=== PATIENT | female | born 1955 | race Caucasian/White ===

== ENCOUNTER → 2016-11-20 | Outpatient (CLI) | payer BC, OTHER ==
[2016-11-20 10:25] LABS: Basophils % (A) 1 %; CH 29.4; CHCM 33.5; Eosinophils # (A) 0.2 k/uL (0-0.7); Eosinophils % (A) 3 %; HCT 44.3 % (34.0-46.0); HDW 2.19; HGB 14.6 gm/dL (11.4-16.0); Luc # (Auto) 0.15; Luc % (Auto) 2; Lymphocytes # (A) 2.1 k/uL (1.0-4.8); Lymphocytes % (A) 30 %; MCH 29.1 pg (25.0-35.0); MCV 88.1 fL (80.0-100.0); Mean Platelet Volume 7.1; Monocytes # (A) 0.3 k/uL (0-1.0); Monocytes % (A) 5 %; Neutrophils # (A) 4.2 k/uL (1.3-7.7); Neutrophils % (A) 60 %; RBC 5.02 m/uL (3.80-5.40); RDW 12.7 % (11.5-15.5); WBC (Perox) 6.91
[2016-11-20 10:48] LABS: Glucose 87 mg/dL (74-99)
[2016-11-20 11:23] LABS: Estradiol 38 pg/mL
[2016-11-20 11:26] LABS: Hemoglobin A1C 5.6 % (4.2-6.1)
[2016-11-20 11:50] LABS: Vitamin B12 >1000 pg/mL (239-931)
[2016-11-20 15:14] LABS: DHEA Sulfate 139.7 ug/dL (26.0-430.0)
== END | disposition home or self-care (01) ==
LOC: LABWHC1 09:52
PROVIDERS: ATTEND Family Medicine
DX: E55.9 Vitamin D deficiency, unspecified (principal); E53.8 Deficiency of other specified B group vitamins; Z98.84 Bariatric surgery status; Z78.0 Asymptomatic menopausal state; E07.9 Disorder of thyroid, unspecified; R79.89 Other specified abnormal findings of blood chemistry; D64.9 Anemia, unspecified
CPT/HCPCS: 36415; 82306; 82607; 82627; 82670; 82728; 82947; 83036; 83090; 83525; 84140; 84144; 84402; 84403; 84481; 85025

== ENCOUNTER → 2016-11-21 | Outpatient (CLI) | payer BC ==
--- NOTE | 2016-11-22 11:43 | MM ---
Reason for exam: screening (asymptomatic). Last mammogram was performed 3 years ago. History: Patient is postmenopausal. Family history of premenopausal breast cancer in paternal aunt at age 43. Taking progesterone for 15 years. Physical Findings: A clinical breast exam by your physician is recommended on an annual basis and results should be correlated with mammographic findings. MG Screening Mammo w CAD Bilateral CC and MLO view(s) were taken. Prior study comparison: November 16, 2013, bilateral MG screening mammo w CAD. May 02, 2011, bilateral digital screening mammo w/CAD. December 13, 2009, bilateral digital screening mammogram. There are scattered fibroglandular densities. There is no discrete abnormality. No significant changes when compared with prior studies. ASSESSMENT: Negative, BI-RAD 1 RECOMMENDATION: Routine screening mammogram of both breasts in 1 year.
== END | disposition home or self-care (01) ==
LOC: RADMAMWWP 15:29
PROVIDERS: ATTEND Family Medicine
DX: Z12.31 Encounter for screening mammogram for malignant neoplasm of breast (principal); N95.1 Menopausal and female climacteric states; R29.890 Loss of height

== ENCOUNTER 2018-12-13 12:43 | Observation (INO) | payer BC ==
[2018-12-13] MEDS ORDERED: SODIUM CHLORIDE 0.9% 1,000 ML IV STA (13:13)
[2018-12-13] MEDS ORDERED: METOCLOPRAMIDE 5 MG/ML 2 ML VIAL IVP STA (13:14)
[2018-12-13] MEDS ORDERED: MECLIZINE 12.5 MG TAB PO STA (13:14)
--- NOTE | 2018-12-13 13:18 | ED ---
General Adult HPI - General Chief complaint: Dizziness Stated complaint: Dizzy Time Seen by Provider: 12/13/18 13:06 Source: patient, RN notes reviewed Mode of arrival: wheelchair Limitations: no limitations - History of Present Illness Initial comments: Patient is a pleasant 63-year-old female presenting to the emergency Department with complaints of dizziness. Onset of symptoms was had bad dizziness at that time. Dizziness is currently described as lightheadedness. Patient does have spinning type sensation with position changes. No history of similar symptoms previously. No recent trauma. No confusion. No speech problems. No weakness. No paresthesias. Patient states when symptoms get bad she does feel nauseated. No syncope. No headache. - Related Data Home Medications Medication Instructions Recorded Confirmed Thyroid(Bio-Identical) 90 mg PO DAILY 03/08/14 12/13/18 Cholecalciferol [Vitamin D3 (25 5,000 unit PO DAILY 12/13/18 12/13/18 Mcg = 1000 Iu)] Cyanocobalamin (Vitamin B-12) 1,000 mcg PO DAILY 12/13/18 12/13/18 [Vitamin B-12] Estradiol 8mg 8 mg PO DAILY 12/13/18 12/13/18 Losartan-Hctz 50-12.5 mg [Hyzaar 1 tab PO DAILY 12/13/18 12/13/18 50-12.5] [place]-3 Fatty Acids/Fish Oil [Fish 1 cap PO DAILY 12/13/18 12/13/18 Oil 1,000 mg Softgel] Progesterone Odt 200mg 100 mg SL HS 12/13/18 12/13/18 Progesterone Sr 200mg 200 mg PO HS 12/13/18 12/13/18 Testosterone 40mg Cream 1 applic TOPICAL HS 12/13/18 12/13/18 Allergies Allergy/AdvReac Type Severity Reaction Status Date / Time codeine AdvReac Nausea & Verified 12/13/18 13:34 Vomiting Review of Systems ROS Statement: Those systems with pertinent positive or pertinent negative responses have been documented in the HPI. ROS Other: All systems not noted in ROS Statement are negative. Constitutional: Denies: fever Eyes: Denies: eye pain ENT: Denies: ear pain Respiratory: Denies: cough Cardiovascular: Denies: chest pain Endocrine: Denies: fatigue Gastrointestinal: Denies: abdominal pain Genitourinary: Denies: dysuria Musculoskeletal: Denies: back pain Skin: Denies: rash Neurological: Reports: vertigo. Denies: headache, weakness, numbness, paresthesias, confusion Past Medical History Past Medical History: Asthma, GERD/Reflux, Hypertension, Sleep Apnea/CPAP/BIPAP, Thyroid Disorder Additional Past Medical History / Comment(s): takes several bio identical hormones @home normally History of Any Multi-Drug Resistant Organisms: None Reported Past Surgical History: Orthopedic Surgery Additional Past Surgical History / Comment(s): partial thyroidectomy, partial parathyroidectomy, 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 Past Anesthesia/Blood Transfusion Reactions: Motion Sickness, Postoperative Nausea & Vomiting (PONV) Past Psychological History: Depression Smoking Status: Never smoker - Past Family History Father Family Medical History: Deep Vein Thrombosis (DVT) General Exam Limitations: no limitations General appearance: alert, in no apparent distress Head exam: Present: atraumatic Eye exam: Present: normal appearance, PERRL, EOMI. Absent: nystagmus ENT exam: Present: normal oropharynx Neck exam: Present: normal inspection Respiratory exam: Present: normal lung sounds bilaterally Cardiovascular Exam: Present: regular rate, normal rhythm GI/Abdominal exam: Present: soft. Absent: tenderness Extremities exam: Present: normal inspection. Absent: calf tenderness Neurological exam: Present: alert, CN II-XII intact. Absent: motor sensory deficit Expanded Neurological exam: Present: protecting the airway Speech: Present: fluid speech Cranial nerves: EOM's Intact: Normal, Facial Sensation: Normal Cerebellar function: Finger to Nose: Normal Sensory exam: Upper Extremity Light Touch: Normal, Lower Extremity Light Touch: Normal Motor strength exam: RUE: 5, LUE: 5, RLE: 5, LLE: 5 Eye Response: (4) open spontaneously Motor Response: (6) obeys commands Verbal Response: (5) oriented Psychiatric exam: Present: normal affect, normal mood Skin exam: Present: normal color Course Vital Signs 12/13/18 12:45 Temperature 98 F Pulse Rate 76 Respiratory 16 Rate Blood Pressure 133/80 O2 Sat by Pulse 98 Oximetry EKG Findings - EKG Comments: EKG Findings:: Normal sinus rhythm at 74. AK 120. QRS 78. QT 378. QTC 419. Normal axis. Voltage criteria for LVH. No acute ST change. Medical Decision Making - Medical Decision Making Patient reevaluated and still has symptoms with movement despite given 3 medications. Patient and family updated on results and plan. Case was discussed with Dr. Savage, covering for Dr. Decker, who will admit. - Lab Data Result diagrams: 12/13/18 13:37 12/13/18 13:37 Lab Results 12/13/18 12/13/18 12/13/18 Range/Units 13:37 13:37 13:37 WBC 10.6 (3.8-10.6) k/uL RBC 5.09 (3.80-5.40) m/uL Hgb 14.7 (11.4-16.0) gm/dL Hct 44.6 (34.0-46.0) % MCV 87.5 (80.0-100.0) fL MCH 28.9 (25.0-35.0) pg MCHC 33.0 (31.0-37.0) g/dL RDW 13.7 (11.5-15.5) % Plt Count 262 (150-450) k/uL Neutrophils % 72 % Lymphocytes % 20 % Monocytes % 5 % Eosinophils % 2 % Basophils % 0 % Neutrophils # 7.6 (1.3-7.7) k/uL Lymphocytes # 2.1 (1.0-4.8) k/uL Monocytes # 0.6 (0-1.0) k/uL Eosinophils # 0.2 (0-0.7) k/uL Basophils # 0.0 (0-0.2) k/uL PT 10.1 (9.0-12.0) sec INR 0.9 (<1.2) APTT 23.7 (22.0-30.0) sec Sodium 142 (137-145) mmol/L Potassium 3.8 (3.5-5.1) mmol/L Chloride 106 (98-107) mmol/L Carbon Dioxide 27 (22-30) mmol/L Anion Gap 9 mmol/L BUN 18 H (7-17) mg/dL Creatinine 0.92 (0.52-1.04) mg/dL Est GFR (CKD-EPI)AfAm 77 (>60 ml/min/1.73 sqM) Est GFR (CKD-EPI)NonAf 67 (>60 ml/min/1.73 sqM) Glucose 116 H (74-99) mg/dL Calcium 9.4 (8.4-10.2) mg/dL Total Bilirubin 0.4 (0.2-1.3) mg/dL AST 18 (14-36) U/L ALT 14 (9-52) U/L Alkaline Phosphatase 72 (38-126) U/L Total Protein 6.8 (6.3-8.2) g/dL Albumin 4.0 (3.5-5.0) g/dL - Radiology Data Radiology results: report reviewed (Computed tomography scan the brain reveals no acute intercranial abnormality. Left maxillary sinusitis.) Disposition Clinical Impression: Vertigo Disposition: ADMITTED IP TO THIS HOSP Is patient prescribed a controlled substance at d/c from ED?: No Referrals: Obdulio Decker III, MD [Primary Care Provider] - 1-2 days Decision Time: 15:53
[2018-12-13 13:56] LABS: Basophils % (A) 0 %; Eosinophils # (A) 0.2 k/uL (0-0.7); Eosinophils % (A) 2 %; HCT 44.6 % (34.0-46.0); HGB 14.7 gm/dL (11.4-16.0); Lymphocytes # (A) 2.1 k/uL (1.0-4.8); Lymphocytes % (A) 20 %; MCH 28.9 pg (25.0-35.0); MCV 87.5 fL (80.0-100.0); Mean Platelet Volume 7.2; Monocytes # (A) 0.6 k/uL (0-1.0); Monocytes % (A) 5 %; Neutrophils # (A) 7.6 k/uL (1.3-7.7); Neutrophils % (A) 72 %; Platelet Count 262 k/uL (150-450); RBC 5.09 m/uL (3.80-5.40); RDW 13.7 % (11.5-15.5); WBC 10.6 k/uL (3.8-10.6)
--- NOTE | 2018-12-13 14:09 | CT ---
EXAMINATION TYPE: CT brain wo con DATE OF EXAM: 12/13/2018 COMPARISON: 08/11/2010 HISTORY: dizziness CT DLP: 1084.4 mGycm Automated exposure control for dose reduction was used. FINDINGS: Ventricles and sulci appear normal. There is no mass effect nor midline shift. There is no sign of in tracranial hemorrhage. Calvarium is intact. There is opacification left maxillary sinus. IMPRESSION: NEGATIVE CT SCAN OF THE BRAIN. THERE IS LEFT MAXILLARY SINUSITIS THAT IS NEW COMPARED TO OLD EXAM.
[2018-12-13 14:13] LABS: Calcium 9.4 mg/dL (8.4-10.2); Potassium 3.8 mmol/L (3.5-5.1); Total Bilirubin 0.4 mg/dL (0.2-1.3); Total Protein 6.8 g/dL (6.3-8.2)
[2018-12-13 14:19] LABS: INR 0.9 (<1.2); Partial Thromboplastin Time 23.7 sec (22.0-30.0); Prothrombin Time 10.1 sec (9.0-12.0)
[2018-12-13] MEDS: DIAZEPAM 5 MG/ML 2 ML INJ IVP STA ×2 (14:20→14:21)
[2018-12-13] MEDS ORDERED: NALOXONE 0.4 MG/ML 1 ML VIAL IV PRN (15:53)
[2018-12-13] MEDS ORDERED: METOCLOPRAMIDE 5 MG/ML 2 ML VIAL IVP PRN (15:54)
[2018-12-13] MEDS ORDERED: MECLIZINE 25 MG TAB PO PRN (15:54)
[2018-12-13] MEDS ORDERED: SCOPOLAMINE 1.5MG/72HR PATCH TRANSDERM STA (15:55)
[2018-12-13] MEDS ORDERED: SODIUM CHLORIDE 0.9% 1,000 ML IV SCH (16:00)
[2018-12-14 06:55] LABS: Glucose,Whole Blood 91 mg/dL (75-99)
--- NOTE | 2018-12-14 07:22 | HP ---
HISTORY AND PHYSICAL DATE OF SERVICE: 12/13/2018 CHIEF COMPLAINT: Dizziness. HISTORY OF PRESENT ILLNESS: This 63-year-old woman with a past medical history of asthma, GERD, hypertension, sleep apnea, hypothyroidism, history of motion sickness, history of gastric sleeve surgery, history of depression, being followed by Dr. Decker in the outpatient setting was complaining of dizziness. The patient apparently reports like a spinning sensation and as well as some lightheadedness. Patient came to [facility] and admitted for further evaluation and treatment. There is no history of fever or rigors. No history of headache, loss of consciousness, or seizures. PAST MEDICAL HISTORY: Asthma, GERD, hypertension, sleep apnea, history of hypothyroidism, history of depression. MEDICATIONS: The home medications are reviewed and include: 1. Thyroid Bio-Identical 90 mg p.o. daily. 2. Testosterone cream 1 application topically q.h.s. 3. Progesterone 200 mg p.o. q.h.s. 4. [place]-3 fatty acid. 5. Losartan hydrochlorothiazide. 6. Estradiol. 7. Vitamin B12. 8. Vitamin D3. ALLERGIES: Allergies are CODEINE. FAMILY HISTORY: History of DVT in the family. SOCIAL HISTORY: No history of smoking. No history of alcohol intake. REVIEW OF SYSTEMS: ENT: No diminished hearing or diminished vision. CARDIOVASCULAR SYSTEM: No angina. RESPIRATORY SYSTEM: No cough or hemoptysis. GI: No nausea. : No dysuria. NERVOUS SYSTEM: As mentioned earlier. ALLERGY/IMMUNOLOGY: Asthma. MUSCULOSKELETAL: As mentioned earlier. HEMATOLOGY/ONCOLOGY: No history of anemia. ENDOCRINE: As mentioned earlier. CONSTITUTIONAL: As mentioned earlier. DERMATOLOGY: Negative. RHEUMATOLOGY: Negative. PSYCHIATRY: As mentioned earlier. PHYSICAL EXAMINATION: The patient is alert and oriented x3. Pulse is 76. Blood pressure 136/83. No orthostatic changes. Respiration 18. Temperature 98.5. Pulse ox 97% on room air. HEENT: Conjunctivae normal. Oral mucosa moist. NECK: No jugular venous distention. No carotid bruit. No lymph node enlargement. CARDIOVASCULAR: S1, S2 muffled. RESPIRATORY: Breath sounds diminished at the bases. No rhonchi, no crackles. ABDOMEN: Soft, nontender. No mass palpable. LEGS: No edema, no swelling. NERVOUS SYSTEM: Higher function as mentioned earlier. Cranial nerves second to twelve grossly intact. No nystagmus noted. No_dysfunction. SKIN: No ulcer, rash or bleeding. JOINTS: No active deforming arthropathy. LYMPHATICS: No lymphadenopathy of the neck, axillae or groin. LABS: CBC within normal limits. BUN is 18. Glucose 116. ASSESSMENT: 1. Dizziness for evaluation possible rule out benign positional vertigo. 2. Asthma. 3. Gastroesophageal reflux disease. 4. Hypertension. 5. Sleep apnea. 6. Hypothyroidism. 7. History of partial thyroidectomy. 8. History of partial parathyroidectomy. 9. History of gastric sleeve surgery. 10.History of depression. RECOMMENDATIONS AND DISCUSSION: This 63-year-old woman presented with multiple complex medical issues, at this time I recommend continue with current medications, continue with symptomatic treatment and neuro checks. Neurology evaluation. The initial evaluations are negative at this time but however recommend to continue the current medication. Resume the home medications. Copy of dictation forwarded to Dr. Decker who is the primary physician. MMODL / CAMERONN: [id number] / MTDD
[2018-12-14 07:32] VITALS: BP 143/89; PULSE 67; RESP 17; TEMP 97.8
[2018-12-14] MEDS ORDERED: LOSARTAN-HCTZ 50-12.5 MG 1 EACH TAB PO SCH (09:00)
[2018-12-14 11:22] LABS: Progesterone 2.7 ng/mL
--- NOTE | 2018-12-14 11:24 | P.CNNES ---
History of Present Illness Consult date: 12/14/18 Requesting physician: Ciarra Rodriguez Reason for Consult: Dizziness Chief complaint: Dizziness History of Present Illness: This is a 63 RH female with abrupt onset of episodic room-spinning sensation precipitated by turning head to the left and body positional changes since a couple days ago. When the vertigo is intense, she gets nauseated. Denies any antecedent head/neck trauma, URI sx or vaccination. No hearing changes or tinnitus. No other posterior circulation symptoms such as drop attacks, diplopia, facial numbness or droop, dysarthria, dysphagia, alternating or hemianesthesia or paresis, myoclonus, hiccups, urinary incontinence or ataxia. Patient observes that she had slept 6 hours and woke up in the morning and felt fine, but as she started moving around, the vertigo returned. Never had had vertigo before. Has been getting scopolamine patch and meclizine, which somewhat help. Review of Systems I have performed a 14-point organ ROS with patient that are negative except as per HPI. Past Medical History Past Medical History: Asthma, GERD/Reflux, Hypertension, Sleep Apnea/CPAP/BIPAP, Thyroid Disorder Additional Past Medical History / Comment(s): takes several bio identical hormones @home normally History of Any Multi-Drug Resistant Organisms: None Reported Past Surgical History: Orthopedic Surgery Additional Past Surgical History / Comment(s): partial thyroidectomy, partial parathyroidectomy, 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 Past Anesthesia/Blood Transfusion Reactions: Motion Sickness, Postoperative Nausea & Vomiting (PONV) Past Psychological History: Depression Smoking Status: Never smoker Past Alcohol Use History: Rare Past Drug Use History: None Reported - Past Family History Father Family Medical History: Deep Vein Thrombosis (DVT) Medications and Allergies Home Medications Medication Instructions Recorded Confirmed Type Thyroid(Bio-Identical) 90 mg PO DAILY 03/08/14 12/13/18 History Cholecalciferol [Vitamin D3 (25 5,000 unit PO DAILY 12/13/18 12/13/18 History Mcg = 1000 Iu)] Cyanocobalamin (Vitamin B-12) 1,000 mcg PO DAILY 12/13/18 12/13/18 History [Vitamin B-12] Estradiol 8mg 8 mg PO DAILY 12/13/18 12/13/18 History Losartan-Hctz 50-12.5 mg [Hyzaar 1 tab PO DAILY 12/13/18 12/13/18 History 50-12.5] [place]-3 Fatty Acids/Fish Oil [Fish 1 cap PO DAILY 12/13/18 12/13/18 History Oil 1,000 mg Softgel] Progesterone Odt 200mg 100 mg SL HS 12/13/18 12/13/18 History Progesterone Sr 200mg 200 mg PO HS 12/13/18 12/13/18 History Testosterone 40mg Cream 1 applic TOPICAL HS 12/13/18 12/13/18 History Allergies Allergy/AdvReac Type Severity Reaction Status Date / Time codeine AdvReac Nausea & Verified 12/13/18 13:34 Vomiting Physical Examination - Vital Signs Vital Signs: Vital Signs Temp Pulse Pulse Pulse Pulse Pulse Resp 12/14/18 07:29 97.8 F 67 17 12/14/18 03:43 18 12/13/18 23:35 18 12/13/18 23:28 98.5 F 76 80 78 18 12/13/18 20:00 16 12/13/18 18:16 16 12/13/18 16:30 97.4 F L 68 16 12/13/18 16:07 79 18 12/13/18 12:45 98 F 76 16 BP BP BP BP BP Pulse Ox 12/14/18 07:29 143/89 96 12/14/18 03:43 12/13/18 23:35 12/13/18 23:28 136/83 139/85 135/71 97 12/13/18 20:00 12/13/18 18:16 12/13/18 16:30 142/84 98 12/13/18 16:07 160/76 95 12/13/18 12:45 133/80 98 Intake and Output 12/13/18 12/14/18 12/14/18 22:59 06:59 14:59 Other: Voiding Method Toilet Toilet Toilet # Voids 1 1 Gen NAD Pleasant and cooperative HEENT NCAT Sclera without icterus O/P clear Neck Supple No carotid bruit Cor RRR no m/r/g Lungs CTAB Abd Soft NTND +BS Ext Warm to touch No edema Neuro MS A+Ox4 Normal fluency Able to follow all commands CN PERRL VFF no APD EOMI no nystagmus or REMBERTO No facial asymmetry [place]'s symmetric Hearing intact to normal voice bilaterally Speech not dysarthric Equal elevation of palate Tongue midline Sym shrug and SCM bilaterally Motor Normal bulk/tone No pronator drift or tremors Strength 5/5 sym throughout Sens Intact to LT x4 No neglect Coord No dysmetria on FTN/HTS bilaterally DTRs 2+/4 sym throughout Toes downgoing bilaterally No clonus at achilles Gait Deferred NIHSS 0 Results - Laboratory Findings CBC and BMP: 12/13/18 13:37 12/13/18 13:37 Abnormal Lab Findings: Abnormal Labs 12/13/18 13:37 BUN 18 H Glucose 116 H - Diagnostic Findings Additional findings: CT Head wo cont 12/13/18. Nil acute. I have reviewed neuroimages myself. Assessment and Plan Assessment: New-onset vertigo, sounds like BPPV. r/o central causes. Plan: -MRI Brain has been done but PACS is down so will need to wait until it gets fixed -PT for vestibular rehabilitation -Meclizine and scopolamine. If vertigo is refractory, can try benzodiazepine but explained to patient that the stronger the anti-vertigo med is, the more sedating it becomes -Fall precautions -d/w patient and family at bedside. All questions answered. Thank you for this consultation. Please call with ?. Time with Patient: Greater than 30 (Time spent in direct patient care, greater than 50% of which was spent in [id number] counseling and coordination of care: 70 minutes.)
--- NOTE | 2018-12-14 13:22 | MR ---
MR brain without contrast HISTORY: Vertigo Multiplanar multisequence imaging through the brain Correlation CT brain 12/13/2018 There is no restricted diffusion. There is no hemorrhage or hydrocephalus. There are normal vascular flow voids. The orbits show symmetric appearance. Scattered periventricular, pericallosal, subcortica l and juxtacortical hyperintensities are present within the white matter on inversion recovery T2-caterina ghted sequences, there are approximately 40-50 lesions present. Left maxillary sinus is opacified, th ere is abnormal signal present. There are normal vascular flow voids. Cerebellopontine angles, corpus callosum, pituitary, cervical medullary junction are unremarkable. IMPRESSION: Nonspecific white matter demyelination, consider hypertension, migraine headaches, chroni c small vessel ischemic changes or vasculitis, multiple sclerosis in the appropriate clinical setting , Lyme disease. No restricted diffusion to suggest subacute ischemia.
--- NOTE | 2018-12-14 16:46 | DS ---
DISCHARGE SUMMARY DATE OF SERVICE: 12/14/2018. FINAL DIAGNOSES: 1. Dizziness possibly benign positional vertigo. 2. Nonspecific white matter changes in the MRI. 3. History of asthma. 4. Gastroesophageal reflux disease. 5. History of sleep apnea. 6. History of hypothyroidism. 7. History of partial thyroidectomy. 8. History of parathyroidectomy. 9. History of gastric sleeve surgery. 10.History of depression. DISCHARGE DISPOSITION: Patient will be discharged in stable condition with guarded prognosis. Neurology cleared the patient for discharge. HISTORY OF PRESENT ILLNESS: This is a 63-year-old woman with a past medical history of multiple medical problems admitted with dizziness to [facility]. The patient was closely monitored. MRI showed only nonspecific white matter lesions. Neurology saw the patient and recommended outpatient followup. Otherwise, patient is symptomatically treated. Patient improved significantly. There were no orthostatic changes for the blood pressure. On exam, vitals are stable. Cardiovascular is S1, S2 normal. Abdomen soft. Nervous system: No focal deficits. Other labs were normal. The patient is being discharged in stable condition with guarded prognosis with the following advice and medications. DISCHARGE ADVICE AND MEDICATIONS: 1. Diet is cardiac diet. 2. Activity limited until followup. 3. Follow up with Dr. Decker as advised. 4. Follow up with the neurologist in the next one to two weeks. DISCHARGE MEDICATIONS: 1. Estradiol 8 mg p.o. daily. 2. Fish oil 1 p.o. daily. 3. Losartan hydrochlorothiazide 50/12.5 mg p.o. daily. 4. Progesterone testosterone thyroid as before. 5. Vitamin B12 1 mg p.o. daily. 6. Vitamin D3 5000 daily. 7. Antivert 12.5 mg t.i.d. p.r.n. Once again, the patient will be discharged in stable condition with guarded prognosis. MMODL / IJN: [id number] /
== END 2018-12-14 15:22 | disposition home or self-care (01) ==
LOC: EC 12:43 → 1SOBS 15:53
PROVIDERS: ADMIT Internal Medicine; ATTEND Internal Medicine
DX: R42 Dizziness and giddiness (principal); K21.9 Gastro-esophageal reflux disease without esophagitis; J45.909 Unspecified asthma, uncomplicated; G37.9 Demyelinating disease of central nervous system, unspecified; J32.0 Chronic maxillary sinusitis; I10 Essential (primary) hypertension; G47.30 Sleep apnea, unspecified; E89.0 Postprocedural hypothyroidism; F32.9 Major depressive disorder, single episode, unspecified; Z99.89 Dependence on other enabling machines and devices; Z79.818 Long term (current) use of other agents affecting estrogen receptors and estrogen levels; Z79.890 Hormone replacement therapy; Z79.899 Other long term (current) drug therapy; Z88.5 Allergy status to narcotic agent; Z98.84 Bariatric surgery status; Z90.89 Acquired absence of other organs; Z87.898 Personal history of other specified conditions; Z82.49 Family history of ischemic heart disease and other diseases of the circulatory system
CPT/HCPCS: 96361; 96374; 96375; 99285; 36415; 93005; 80053; 82672; 82670; 85025; 85610; 85730; 84144; 70450; 70551; G0378 ×2; J2765; J3360

== ENCOUNTER → 2019-01-07 | Outpatient (CLI) | payer BC ==
--- NOTE | 2019-01-08 09:17 | MM ---
Reason for exam: screening (asymptomatic). Last mammogram was performed 2 years and 2 months ago. History: Patient is postmenopausal. Family history of premenopausal breast cancer in paternal aunt at age 43. Taking progesterone for 15 years. Physical Findings: A clinical breast exam by your physician is recommended on an annual basis and results should be correlated with mammographic findings. MG Screening Mammo w CAD Bilateral CC and MLO view(s) were taken. Prior study comparison: November 21, 2016, bilateral MG screening mammo w CAD. November 16, 2013, bilateral MG screening mammo w CAD. There are scattered fibroglandular densities. No suspicious abnormality. No significant changes when compared with prior studies. ASSESSMENT: Negative, BI-RAD 1 RECOMMENDATION: Routine screening mammogram of both breasts in 1 year.
== END | disposition home or self-care (01) ==
LOC: RADMAMWWP 09:46
PROVIDERS: ATTEND Family Medicine
DX: Z12.31 Encounter for screening mammogram for malignant neoplasm of breast (principal)
CPT/HCPCS: 77067

== ENCOUNTER 2021-03-10 13:14 | Emergency (ER) | payer OTHER, BC ==
[2021-03-10 13:37] VITALS: TEMP 99
[2021-03-10 14:42] VITALS: RESP 18
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
--- NOTE | 2021-03-10 16:24 | XR ---
EXAMINATION TYPE: XR lumbar spine 2 or 3V DATE OF EXAM: 03/10/2021 COMPARISON: NONE HISTORY: Back pain TECHNIQUE: 3 views FINDINGS: Lumbar vertebra have normal alignment. Posterior elements are intact. There is vacuum disc at L4-5 and L5-S1. Sacroiliac joints are intact. There is some linear density over the left sacroilia c joint. This is also present on the old abdomen x-ray of 07/07/2011. This is some retained foreign lokesh dy in the abdomen. IMPRESSION: There is some degenerative disc changes in the lower lumbar spine. No fracture.. Retained foreign body in the left side of the abdomen.
[2021-03-10 17:13] VITALS: BP 126/78; PULSE 80
== END 2021-03-10 17:13 | disposition home or self-care (01) ==
LOC: EC 13:14
DX: S16.1XXA Strain of muscle, fascia and tendon at neck level, initial encounter (principal); S39.012A Strain of muscle, fascia and tendon of lower back, initial encounter; J45.909 Unspecified asthma, uncomplicated; I10 Essential (primary) hypertension; E07.9 Disorder of thyroid, unspecified; Z88.5 Allergy status to narcotic agent; Z79.890 Hormone replacement therapy; Z79.899 Other long term (current) drug therapy; V49.40XA Driver injured in collision with unspecified motor vehicles in traffic accident, initial encounter; Y92.410 Unspecified street and highway as the place of occurrence of the external cause
CPT/HCPCS: 72100; 72125; 99284

== ENCOUNTER 2021-08-02 13:34 | Emergency (ER) | payer BC ==
[2021-08-02 13:44] VITALS: BP 149/72; PULSE 80; RESP 20; TEMP 98.3
--- NOTE | 2021-08-02 14:02 | ED ---
General Adult HPI - General Chief complaint: Extremity Injury, Lower Stated complaint: Broken foot Time Seen by Provider: 08/02/21 13:52 Source: patient, RN notes reviewed, old records reviewed Mode of arrival: ambulatory Limitations: no limitations - History of Present Illness Initial comments: 65 yo female presenting for evaluation of left foot pain. Patient states she was climbing stairs and felt a pop in the underside of her left foot. She has had pain since the injury. No significant swelling. No bruising. She is able to walk but his had pain with ambulation. - Related Data Home Medications Medication Instructions Recorded Confirmed Testosterone 40mg Cream 1 applic TOPICAL Q3D 12/13/18 08/02/21 Estradiol Cream 8gm 8 gm TOPICAL DAILY 08/02/21 08/02/21 Fluconazole [Diflucan] 150 mg PO SA 08/02/21 08/02/21 Ketoconazole [Ketoconazole 2%] 1 applic TOPICAL BID 08/02/21 08/02/21 [address] [employer] Thyriod 1.5gm 1.5 gm PO DAILY 08/02/21 08/02/21 Olmesartan/Hydrochlorothiazide 1 tab PO DAILY 08/02/21 08/02/21 [Olmesartan-Hctz 40-12.5 mg Tab] Omeprazole 20 mg PO DAILY 08/02/21 08/02/21 Progesterone 400mg 400 mg PO BID 08/02/21 08/02/21 Allergies Allergy/AdvReac Type Severity Reaction Status Date / Time codeine AdvReac Nausea & Verified 08/02/21 14:16 Vomiting Review of Systems ROS Statement: Those systems with pertinent positive or pertinent negative responses have been documented in the HPI. ROS Other: All systems not noted in ROS Statement are negative. Past Medical History Past Medical History: Asthma, GERD/Reflux, Hypertension, Sleep Apnea/CPAP/BIPAP, Thyroid Disorder Additional Past Medical History / Comment(s): takes several bio identical hormones @home normally History of Any Multi-Drug Resistant Organisms: None Reported Past Surgical History: Orthopedic Surgery Additional Past Surgical History / Comment(s): partial thyroidectomy, partial parathyroidectomy, 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 Past Anesthesia/Blood Transfusion Reactions: Motion Sickness, Postoperative Nausea & Vomiting (PONV) Past Psychological History: Depression Smoking Status: Never smoker Past Alcohol Use History: Rare Past Drug Use History: None Reported - Past Family History Father Family Medical History: Deep Vein Thrombosis (DVT) General Exam Limitations: no limitations General appearance: alert, in no apparent distress Head exam: Present: atraumatic, normocephalic Eye exam: Present: normal appearance, PERRL ENT exam: Present: normal exam Neck exam: Present: normal inspection. Absent: tenderness, meningismus Respiratory exam: Present: normal lung sounds bilaterally. Absent: respiratory distress, wheezes Cardiovascular Exam: Present: regular rate, normal rhythm GI/Abdominal exam: Present: soft. Absent: distended, tenderness, guarding Extremities exam: Present: normal inspection, tenderness (Just distal to the calcaneus, tenderness at the mid foot. There is no bruising. Normal cap refill, normal sensation, normal range of motion.) Neurological exam: Present: alert, oriented X3 Psychiatric exam: Present: normal affect, normal mood Skin exam: Present: warm, dry, intact. Absent: cyanosis, diaphoretic Course Vital Signs 08/02/21 13:41 Temperature 98.3 F Pulse Rate 80 Respiratory 20 Rate Blood Pressure 149/72 O2 Sat by Pulse 98 Oximetry Medical Decision Making - Medical Decision Making X-ray of the foot performed, negative for acute fracture dislocation. Patient may have sustained a ligamentous injury. She will be given orthopedic follow- up. She will take Tylenol Motrin for pain. Disposition Clinical Impression: Sprain of foot, left Disposition: HOME SELF-CARE Condition: Good Instructions (If sedation given, give patient instructions): Foot Sprain (ED) Is patient prescribed a controlled substance at d/c from ED?: No Referrals: Tete Curtis MD [Primary Care Provider] - 1-2 days Prasanth Frost MD [Medical Doctor] - 1-2 days Time of Disposition: 15:05
--- NOTE | 2021-08-02 14:59 | XR ---
EXAMINATION TYPE: XR foot complete LT DATE OF EXAM: 08/02/2021 COMPARISON: None available INDICATION: Fall TECHNIQUE: Standard 3 views of the left foot FINDINGS: Degenerative changes of the first metatarsophalangeal joint with osteophytosis and subchondral sclero tic changes. Questionable 4 mm sclerotic focus is seen in the second distal phalanx, likely represent ing a bone island. No bone destruction. Inferior calcaneal spur. No definite acute fracture line iden tified. IMPRESSION: No definite acute fracture line identified. Incidental findings as described above.
== END 2021-08-02 15:04 | disposition home or self-care (01) ==
LOC: EC 13:34
DX: S93.602A Unspecified sprain of left foot, initial encounter (principal); J45.909 Unspecified asthma, uncomplicated; I10 Essential (primary) hypertension; K21.9 Gastro-esophageal reflux disease without esophagitis; E07.9 Disorder of thyroid, unspecified; Z88.5 Allergy status to narcotic agent; Z79.899 Other long term (current) drug therapy; Z79.890 Hormone replacement therapy; X50.9XXA Other and unspecified overexertion or strenuous movements or postures, initial encounter
CPT/HCPCS: 99283

== ENCOUNTER → 2023-07-15 | Outpatient (CLI) | payer BC ==
--- NOTE | 2023-07-16 09:07 | MM ---
Reason for Exam: Screening (asymptomatic). Last mammogram was performed 1 year(s) and 10 month(s) ago. Patient History: Menarche at age 12. First Full-Term at age 19. Left ovary removed at age 45. Postmenopausal. Currently using Progesterone, for 15 years. Paternal aunt had breast cancer, age 43. Sister had breast cancer, age 74. Risk Values: Chyna 5 year model risk: 3.1%. NCI Lifetime model risk: 10.5%. Prior Study Comparison: 11/16/2013 Bilateral Screening Mammogram, [facility]. 11/21/2016 Bilateral Screening Mammogram, [facility]. 01/07/2019 Bilateral Screening Mammogram, [facility]. 08/24/2021 Bilateral Screening Mammogram, [facility]. Tissue Density: There are scattered fibroglandular densities. Findings: Analyzed By CAD. There is no suspicious group of microcalcifications or new suspicious mass in either breast. Benign-appearing calcifications. Overall Assessment: Benign, BI-RAD 2 Management: Screening Mammogram of both breasts in 1 year. . Patient should continue monthly self-breast exams. A clinical breast exam by your physician is recommended on an annual basis. This exam should not preclude additional follow-up of suspicious palpable abnormalities. Note on Chyna scores and lifetime risk: 1. A Chyna score greater than 3% is considered moderate risk. If this is the case, consider specialist referral to assess eligibility for a risk reducing agent. 2. If overall lifetime risk for the development of breast cancer is 20% or higher, the patient may qualify for future screening with alternating mammogram and breast MRI. Electronically signed and approved by: Chepe Ortiz M.D. Radiologis
== END | disposition home or self-care (01) ==
LOC: RADMAMWWP 11:48
PROVIDERS: ATTEND Family Medicine
DX: Z12.31 Encounter for screening mammogram for malignant neoplasm of breast (principal); Z80.3 Family history of malignant neoplasm of breast; Z78.0 Asymptomatic menopausal state
CPT/HCPCS: 77063; 77067

== ENCOUNTER → 2023-07-15 | Outpatient (CLI) | payer BC ==
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
== END | disposition home or self-care (01) ==
LOC: RADCTMAIN 12:24
PROVIDERS: ATTEND Family Medicine
DX: N20.0 Calculus of kidney (principal); M62.830 Muscle spasm of back; N28.89 Other specified disorders of kidney and ureter; Z87.442 Personal history of urinary calculi
CPT/HCPCS: 74176

== ENCOUNTER 2023-09-25 16:22 | Emergency (ER) | payer BC ==
--- NOTE | 2023-09-25 17:03 | ED ---
Abdominal Pain HPI - General Chief Complaint: Abdominal Pain Stated Complaint: R side pain/ELDER Time Seen by Provider: 09/25/23 16:49 Source: patient, family Mode of arrival: ambulatory Limitations: no limitations - History of Present Illness Initial Comments: This is a 67-year-old female presenting for severe abdominal pain. Patient woke up with debilitating right-sided abdominal pain that went away and then came back again this afternoon that was significantly on her right side radiating to her abdomen and lower abdomen and in groin. Patient did admit to symptoms of sweating and felt feverish. Positive nausea without any vomiting. MD Complaint: abdominal pain, flank pain -: hour(s) Location: RLQ, suprapubic, R flank Radiation: suprapubic, R flank, back Migration to: suprapubic Severity: severe Severity scale (1-10): 8 Quality: stabbing Consistency: constant Improves With: nothing Worsens With: nothing Associated Symptoms: nausea, vomiting Treatments Prior to Arrival: other (0) - Related Data Home Medications Medication Instructions Recorded Confirmed Omeprazole 20 mg PO DAILY 08/02/21 09/28/23 Acetaminophen [Tylenol Arthritis] 650 - 1,300 mg PO TID PRN 09/25/23 09/28/23 Dhea 20mg 1 cap PO DAILY 09/25/23 09/28/23 Estradiol 8mg/Gm Cream 0.25 gm TOPICAL BID 09/25/23 09/28/23 Testosterone 40mg/Gm Cream 0.25 gm TOPICAL HS 09/25/23 09/28/23 Thyroid,Pork [Physician'S Assistant Thyroid] 90 mg PO DAILY 09/25/23 09/28/23 Albuterol Sulfate [Proair 2 puff INHALATION Q6H PRN 09/28/23 09/28/23 Respiclick] Progesterone, Micronized 200 mg PO HS 09/28/23 09/28/23 [Progesterone] Previous Rx's Medication Instructions Recorded Ciprofloxacin HCl [Cipro] 500 mg PO Q12HR 10 Days #20 tab 09/30/23 Furosemide [Lasix] 20 mg PO DAILY #30 tab 09/30/23 Allergies Allergy/AdvReac Type Severity Reaction Status Date / Time codeine AdvReac Nausea & Verified 09/28/23 10:56 Vomiting Review of Systems ROS Statement: Those systems with pertinent positive or pertinent negative responses have been documented in the HPI. ROS Other: All systems not noted in ROS Statement are negative. 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 Past Anesthesia/Blood Transfusion Reactions: Motion Sickness, Postoperative Nausea & Vomiting (PONV) Past Psychological History: Depression Smoking Status: Never smoker Past Alcohol Use History: Rare Past Drug Use History: None Reported - Past Family History Father Family Medical History: Deep Vein Thrombosis (DVT) General Exam Limitations: no limitations General appearance: alert, in no apparent distress, anxious Head exam: Present: atraumatic, normocephalic, normal inspection Eye exam: Present: normal appearance, PERRL, EOMI. Absent: scleral icterus, conjunctival injection, periorbital swelling ENT exam: Present: normal exam, mucous membranes moist Neck exam: Present: normal inspection. Absent: tenderness, meningismus, lymphadenopathy Respiratory exam: Present: normal lung sounds bilaterally. Absent: respiratory distress, wheezes, rales, rhonchi, stridor Cardiovascular Exam: Present: regular rate, normal rhythm, normal heart sounds. Absent: systolic murmur, diastolic murmur, rubs, gallop, clicks GI/Abdominal exam: Present: soft, normal bowel sounds. Absent: distended, tenderness, guarding, rebound, rigid Extremities exam: Present: normal inspection, full ROM, normal capillary refill. Absent: tenderness, pedal edema, joint swelling, calf tenderness Back exam: Present: normal inspection Neurological exam: Present: alert, oriented X3, CN II-XII intact Psychiatric exam: Present: normal affect, normal mood Skin exam: Present: warm, dry, intact, normal color. Absent: rash Course Vital Signs 09/25/23 09/25/23 09/25/23 16:35 16:38 18:16 Temperature 98.4 F 98.5 F 98.7 F Pulse Rate 83 109 H Respiratory 20 18 Rate Blood Pressure 118/63 149/64 O2 Sat by Pulse 98 96 Oximetry 09/25/23 20:15 Temperature Pulse Rate 97 Respiratory 16 Rate Blood Pressure 131/66 O2 Sat by Pulse 98 Oximetry - Reevaluation(s) Reevaluation #1: 09/25/23 19:46 medical record is reviewed Reevaluation #2: 09/25/23 19:47 patient pain is controlled Reevaluation #3: 09/25/23 19:47 patient is informed of results and questions answered Reevaluation #4: Was pt. sent in by a medical professional or institution (, GERSON, PUBLIC HEALTH ADVISOR, urgent care, hospital, or [facility]...) When possible be specific @ -no Did you speak to anyone other than the patient for history (EMS, parent, family, police, friend...)? What history was obtained from this source @ -no Did you review nursing and triage notes (agree or disagree)? Why? @ -agree Are old charts reviewed (outside hosp., previous admission, EMS record, old EKG, old radiological studies, urgent care reports/EKG's, [facility] records)? Report findings @ -yes Differential Diagnosis (chest pain, altered mental status, abdominal pain women, abdominal pain men, vaginal bleeding, weakness, fever, dyspnea, syncope, headache, dizziness, GI bleed, back pain, seizure, CVA, palpatations, mental health, musculoskeletal)? @ -prior EKG interpreted by me (3pts min.). @ -no X-rays interpreted by me (1pt min.). @ -no CT interpreted by me (1pt min.). @ -yes negative for acute disease U/S interpreted by me (1pt. min.). @ -no What testing was considered but not performed or refused? (CT, X-rays, U/S, labs)? Why? @ -none What meds were considered but not given or refused? Why? @ -none Did you discuss the management of the patient with other professionals (professionals i.e. , GERSON, PUBLIC HEALTH ADVISOR, lab, RT, psych nurse, social studies department chair, vendor management consultant, teacher, vessel traffic officer, porter sample case)? Give summary @ -no Was smoking cessation discussed for >3mins.? @ -no Was critical care preformed (if so, how long)? @ -no Were there social determinants of health that impacted care today? How? (Homelessness, low income, unemployed, alcoholism, drug addiction, transportation, low edu. Level, literacy, decrease access to med. care, fci, rehab)? @ -none Was there de-escalation of care discussed even if they declined (Discuss DNR or withdrawal of care, Hospice)? DNR status @ -no What co-morbidities impacted this encounter? (DM, HTN, Smoking, COPD, CAD, Cancer, CVA, ARF, Chemo, Hep., AIDS, mental health diagnosis, sleep apnea, morbid obesity)? @ -none Was patient admitted / discharged? Hospital course, mention meds given and route, prescriptions, significant lab abnormalities, going to OR and other pertinent info. @ - 67 female to the ER for evaluation today. Patient presents today for evaluation of severe abdominal pain with positive ureterolithiasis right-sided kidney stone at the UVJ 4 mm. Patient will expect to pass his kidney stone in the next 24 hours, given pain control and can be discharged home Discharge Undiagnosed new problem with uncertain prognosis? @ -no Drug Therapy requiring intensive monitoring for toxicity (Heparin, Nitro, Insulin, Cardizem)? @ -no Were any procedures done? @ -no Diagnosis/symptom? @ -Kidney stone with ureteral lithiasis Acute, or Chronic, or Acute on Chronic? @ -Acute Uncomplicated (without systemic symptoms) or Complicated (systemic symptoms)? @ -Complicated Side effects of treatment? @ -no Exacerbation, Progression, or Severe Exacerbation? @ -exacerbation Poses a threat to life or bodily function? How? (Chest pain, USA, DE, pneumonia, PE, COPD, DKA, ARF, appy, cholecystitis, CVA, Diverticulitis, Homicidal, Suicidal, threat to staff... and all critical care pts) @ -yes with extremes of age Reevaluation #5: Differential Abdominal Pain Women: Appendicitis, Cholecystitis, diverticulosis, ischemic bowel, pancreatitis, hepatitis, UTI, gastroenteritis, AAA, incarcerated hernia, bowel obstruction, constipation, inflammatory bowel, hepatitis, peptic ulcer disease, splenic infarction, perforated viscus, vulvitis, ovarian torsion, PID, kidney stone, placenta abruption, this is not meant to be an all-inclusive list Medical Decision Making - Medical Decision Making 67 female to the ER for evaluation today. Patient presents today for evaluation of severe abdominal pain with positive ureterolithiasis right-sided kidney stone at the UVJ 4 mm. Patient will expect to pass his kidney stone in the next 24 hours, given pain control and can be discharged home - Lab Data Result diagrams: 09/25/23 17:51 09/25/23 17:51 Lab Results 09/25/23 09/25/23 09/25/23 Range/Units 17:51 17:51 17:51 WBC 15.9 H (3.8-10.6) k/uL RBC 5.27 (3.80-5.40) m/uL Hgb 15.2 (11.4-16.0) gm/dL Hct 48.2 H (34.0-46.0) % MCV 91.6 (80.0-100.0) fL MCH 29.0 (25.0-35.0) pg MCHC 31.6 (31.0-37.0) g/dL RDW 13.1 (11.5-15.5) % Plt Count 260 (150-450) k/uL MPV 7.8 Neutrophils % 85 % Lymphocytes % 8 % Monocytes % 5 % Eosinophils % 1 % Basophils % 0 % Neutrophils # 13.6 H (1.3-7.7) k/uL Lymphocytes # 1.3 (1.0-4.8) k/uL Monocytes # 0.8 (0-1.0) k/uL Eosinophils # 0.1 (0-0.7) k/uL Basophils # 0.0 (0-0.2) k/uL PT 10.4 (10.0-12.5) sec INR 0.9 (<1.2) APTT 22.3 (22.0-30.0) sec Sodium 137 (137-145) mmol/L Potassium 4.9 (3.5-5.1) mmol/L Chloride 102 (98-107) mmol/L Carbon Dioxide 26 (22-30) mmol/L Anion Gap 9 mmol/L BUN 21 H (7-17) mg/dL Creatinine 1.09 H (0.52-1.04) mg/dL Est GFR (CKD-EPI)AfAm 61 (>60 ml/min/1.73 sqM) Est GFR (CKD-EPI)NonAf 53 (>60 ml/min/1.73 sqM) Glucose 97 (74-99) mg/dL Plasma Lactic Acid Raymond (0.7-2.0) mmol/L Calcium 9.2 (8.4-10.2) mg/dL Total Bilirubin 0.8 (0.2-1.3) mg/dL AST 32 (14-36) U/L ALT 15 (4-34) U/L Alkaline Phosphatase 82 (38-126) U/L Total Protein 7.6 (6.3-8.2) g/dL Albumin 4.2 (3.5-5.0) g/dL Amylase 81 (30-110) U/L Lipase 153 (23-300) U/L Urine Color Urine Appearance (Clear) Urine pH (5.0-8.0) Ur Specific [place] (1.001-1.035) Urine Protein (Negative) Urine Glucose (UA) (Negative) Urine Ketones (Negative) Urine Blood (Negative) Urine Nitrite (Negative) Urine Bilirubin (Negative) Urine Urobilinogen (<2.0) mg/dL Ur Leukocyte Esterase (Negative) Urine RBC (0-5) /hpf Urine WBC (0-5) /hpf Ur Squamous Epith Cells (0-4) /hpf Urine Bacteria (None) /hpf Urine Mucus (None) /hpf 09/25/23 09/25/23 Range/Units 17:51 19:45 WBC (3.8-10.6) k/uL RBC (3.80-5.40) m/uL Hgb (11.4-16.0) gm/dL Hct (34.0-46.0) % MCV (80.0-100.0) fL MCH (25.0-35.0) pg MCHC (31.0-37.0) g/dL RDW (11.5-15.5) % Plt Count (150-450) k/uL MPV Neutrophils % % Lymphocytes % % Monocytes % % Eosinophils % % Basophils % % Neutrophils # (1.3-7.7) k/uL Lymphocytes # (1.0-4.8) k/uL Monocytes # (0-1.0) k/uL Eosinophils # (0-0.7) k/uL Basophils # (0-0.2) k/uL PT (10.0-12.5) sec INR (<1.2) APTT (22.0-30.0) sec Sodium (137-145) mmol/L Potassium (3.5-5.1) mmol/L Chloride (98-107) mmol/L Carbon Dioxide (22-30) mmol/L Anion Gap mmol/L BUN (7-17) mg/dL Creatinine (0.52-1.04) mg/dL Est GFR (CKD-EPI)AfAm (>60 ml/min/1.73 sqM) Est GFR (CKD-EPI)NonAf (>60 ml/min/1.73 sqM) Glucose (74-99) mg/dL Plasma Lactic Acid Raymond 1.3 (0.7-2.0) mmol/L Calcium (8.4-10.2) mg/dL Total Bilirubin (0.2-1.3) mg/dL AST (14-36) U/L ALT (4-34) U/L Alkaline Phosphatase (38-126) U/L Total Protein (6.3-8.2) g/dL Albumin (3.5-5.0) g/dL Amylase (30-110) U/L Lipase (23-300) U/L Urine Color Light Yellow Urine Appearance Cloudy H (Clear) Urine pH 5.5 (5.0-8.0) Ur Specific [place] 1.043 H (1.001-1.035) Urine Protein Negative (Negative) Urine Glucose (UA) Negative (Negative) Urine Ketones 1+ H (Negative) Urine Blood Small H (Negative) Urine Nitrite Positive H (Negative) Urine Bilirubin Negative (Negative) Urine Urobilinogen <2.0 (<2.0) mg/dL Ur Leukocyte Esterase Small H (Negative) Urine RBC 5 (0-5) /hpf Urine WBC 12 H (0-5) /hpf Ur Squamous Epith Cells 8 H (0-4) /hpf Urine Bacteria Occasional H (None) /hpf Urine Mucus Rare H (None) /hpf - Radiology Data Radiology results: report reviewed (CT abd pelvis positive for kidney sotne), image reviewed Disposition Clinical Impression: Right ureteral calculus, Abdominal pain Disposition: HOME SELF-CARE Condition: Good Instructions (If sedation given, give patient instructions): Kidney Stones (ED) Is patient prescribed a controlled substance at d/c from ED?: No Referrals: Tete Curtis MD [Primary Care Provider] - 1-2 days James Dean MD [STAFF PHYSICIAN] - 1-2 days Time of Disposition: 19:45
[2023-09-25] MEDS: MORPHINE SULFATE 4 MG/ML SYRINGE IVP STA (17:32)
[2023-09-25] MEDS: ONDANSETRON 4 MG/2 ML VIAL IVP STA (17:33)
[2023-09-25] MEDS: KETOROLAC 15 MG/ML 1 ML VIAL IVP STA (17:33)
[2023-09-25] MEDS: SODIUM CHLORIDE 0.9% 1,000 ML IV STA ×2 (17:38→20:34)
[2023-09-25] MEDS: SODIUM CHLORIDE 0.9% 500 ML 500 ML IV STA (17:39)
[2023-09-25 17:59] LABS: Basophils % (A) 0 %; Eosinophils # (A) 0.1 k/uL (0-0.7); Eosinophils % (A) 1 %; HCT 48.2 % (34.0-46.0); HGB 15.2 gm/dL (11.4-16.0); Lymphocytes # (A) 1.3 k/uL (1.0-4.8); Lymphocytes % (A) 8 %; MCHC 31.6 g/dL (31.0-37.0); MCV 91.6 fL (80.0-100.0); Mean Platelet Volume 7.8; Monocytes # (A) 0.8 k/uL (0-1.0); Monocytes % (A) 5 %; Neutrophils # (A) 13.6 k/uL (1.3-7.7); Neutrophils % (A) 85 %; Platelet Count 260 k/uL (150-450); RBC 5.27 m/uL (3.80-5.40); RDW 13.1 % (11.5-15.5); WBC 15.9 k/uL (3.8-10.6)
[2023-09-25 18:13] LABS: INR 0.9 (<1.2); Partial Thromboplastin Time 22.3 sec (22.0-30.0); Prothrombin Time 10.4 sec (10.0-12.5)
[2023-09-25 18:18] LABS: ALT 15 U/L (4-34); AST 32 U/L (14-36); African American GFR (CKD) 61 (>60 ml/min/1.73 sqM); Albumin 4.2 g/dL (3.5-5.0); Alkaline Phosphatase 82 U/L (38-126); Amylase 81 U/L (30-110); Anion Gap 9 mmol/L; Blood Urea Nitrogen 21 mg/dL (7-17); Calcium 9.2 mg/dL (8.4-10.2); Carbon Dioxide 26 mmol/L (22-30); Chloride 102 mmol/L (98-107); Glucose 97 mg/dL (74-99); Lipase 153 U/L (23-300); Non-African American GFR(CKD) 53 (>60 ml/min/1.73 sqM); Sodium 137 mmol/L (137-145); Total Bilirubin 0.8 mg/dL (0.2-1.3); Total Protein 7.6 g/dL (6.3-8.2)
[2023-09-25] MEDS: ACETAMINOPHEN IV (For NPO) 1,000 MG in EMPTY BAG 1 BAG IVPB STA (18:18)
[2023-09-25 18:19] LABS: Potassium 4.9 mmol/L (3.5-5.1)
[2023-09-25 18:34] VITALS: TEMP 98.7
[2023-09-25] MEDS: IBUPROFEN IV 800 MG in SODIUM CHLORIDE 0.9% 250 ML IV ONE (19:20)
--- NOTE | 2023-09-25 19:27 | CT ---
EXAMINATION TYPE: CT abdomen pelvis w con DATE OF EXAM: 09/25/2023 COMPARISON: 07/15/2023 HISTORY: right sided abdominal pain CT DLP: 1967.4 mGycm Automated exposure control for dose reduction was used. TECHNIQUE: Helical acquisition of images was performed from the lung bases through the pelvis. CONTRAST: Performed without Oral Contrast and with IV Contrast, patient injected with 100 ml mL of Isovue 300. FINDINGS: The lung bases are clear. There is a small hiatal hernia and postsurgical changes at the GE junction within the stomach. The gallbladder is normal without distention, wall thickening, pericholecystic fluid or gallstones. T here is no biliary ductal dilatation. There is no focal mass or organomegaly involving the liver, pancreas, spleen or adrenal glands. There is mild right hydronephrosis secondary to a 3 to 4 mm obstructing right UPJ calculus. There is no left hydronephrosis or calculus. There are no solid renal masses. The caliber the abdominal aorta is normal is no retroperitoneal adenopathy or hemorrhage. The bowel loops are normal in caliber and there is no evidence of dilatation or obstruction. No infla mmatory changes are identified in the bowel wall or mesentery. Curvilinear foreign body in the left l ower quadrant unchanged compared to previous. There is no free intraperitoneal air or fluid. No pelvic mass, free fluid, abscess or adenopathy. The osseous structures and soft tissues are intact. IMPRESSION: 1. Mild right hydronephrosis secondary to a 3 to 4 mm obstructing right UPJ calculus. No other signif icant abnormality seen. 2. No change in the foreign body in the left lower quadrant of the abdomen.
[2023-09-25] MEDS: IBUPROFEN 600 MG STARTER PACK 4 TAB BTL PO STA (19:52)
[2023-09-25] MEDS: ACET/COD 300 MG/30 MG STARTER PACK 6 TAB BTL PO STA (19:52)
[2023-09-25] MEDS: traMADol 50 MG STARTER PACK 3 TAB BTL PO STA (20:09)
[2023-09-25] MEDS: HYDROmorphone 0.5 MG/0.5 ML SYRINGE IVP STA (20:09)
[2023-09-25] MEDS: ONDANSETRON 4 MG ODT STARTER PACK 2 TAB BTL PO STA (20:10)
[2023-09-25] MEDS: TAMSULOSIN 0.4 MG CAP.ER.24H PO STA (20:10)
[2023-09-25 20:27] VITALS: BP 131/66; PULSE 97; RESP 16
[2023-09-25 20:41] LABS: Appearance,Urine Cloudy (Clear); Bacteria,Urine Occasional /hpf; Bilirubin,Urine Negative (Negative); Blood,Urine Small (Negative); Color,Urine Light Yellow; Glucose,Urine (UA) Negative (Negative); Ketones,Urine 1+ (Negative); Leukocyte Esterase,Urine Small (Negative); Mucus,Urine Rare /hpf; Nitrite,Urine Positive (Negative); PH, Urine 5.5 (5.0-8.0); Protein,Urine Negative (Negative); RBC,Urine 5 /hpf (0-5); Specific Gravity,Urine 1.043 (1.001-1.035); Squamous Epithelial Cell,Urine 8 /hpf (0-4); Urobilinogen,Urine <2.0 mg/dL (<2.0); WBC,Urine 12 /hpf (0-5)
== END 2023-09-25 21:23 | disposition home or self-care (01) ==
LOC: EC 16:22
DX: N20.2 Calculus of kidney with calculus of ureter (principal); Z88.5 Allergy status to narcotic agent
CPT/HCPCS: 36415; 80053; 82150; 83605; 83690; 85025; 85610; 85730; 81001; 87086; 87077; 87186; 74177; 99285; 96365; 96366; 96375 ×4; 96361; J2270; J2405; J0131; J1885; S0119; J1170; Q9967

== ENCOUNTER 2023-09-27 17:03 | Inpatient (IN) | payer BC ==
[2023-09-27 19:34] LABS: Basophils % (A) 0 %; Eosinophils # (A) 0.1 k/uL (0-0.7); Eosinophils % (A) 1 %; HCT 38.5 % (34.0-46.0); HGB 12.4 gm/dL (11.4-16.0); Lymphocytes # (A) 0.4 k/uL (1.0-4.8); Lymphocytes % (A) 2 %; MCH 29.2 pg (25.0-35.0); MCHC 32.3 g/dL (31.0-37.0); MCV 90.4 fL (80.0-100.0); Mean Platelet Volume 7.9; Monocytes # (A) 0.4 k/uL (0-1.0); Monocytes % (A) 3 %; Neutrophils # (A) 13.8 k/uL (1.3-7.7); Neutrophils % (A) 93 %; Platelet Count 195 k/uL (150-450); RBC 4.26 m/uL (3.80-5.40); RDW 13.1 % (11.5-15.5); WBC 14.8 k/uL (3.8-10.6)
[2023-09-27] MEDS: ACETAMINOPHEN TAB 500 MG TAB PO STA (19:59)
[2023-09-27] MEDS: SODIUM CHLORIDE 0.9% 2,000 ML IV STA (20:00)
[2023-09-27 20:21] LABS: Amorphous Sediment,Urine Many /hpf; Appearance,Urine Turbid (Clear); Bacteria,Urine Many /hpf; Bilirubin,Urine Negative (Negative); Blood,Urine Small (Negative); Color,Urine Yellow; Glucose,Urine (UA) Negative (Negative); Granular Casts,Urine 49 /lpf (0); Hyaline Casts,Urine 21 /lpf (0-2); Ketones,Urine Negative (Negative); Leukocyte Esterase,Urine Large (Negative); Mucus,Urine Few /hpf; Nitrite,Urine Negative (Negative); PH, Urine 5.5 (5.0-8.0); Protein,Urine 1+ (Negative); RBC,Urine 5 /hpf (0-5); Specific Gravity,Urine 1.014 (1.001-1.035); Squamous Epithelial Cell,Urine 2 /hpf (0-4); Urobilinogen,Urine <2.0 mg/dL (<2.0); WBC,Urine >182 /hpf (0-5)
[2023-09-27 20:32] LABS: ALT 18 U/L (4-34); AST 28 U/L (14-36); African American GFR (CKD) 24 (>60 ml/min/1.73 sqM); Albumin 2.7 g/dL (3.5-5.0); Alkaline Phosphatase 86 U/L (38-126); Anion Gap 10 mmol/L; Blood Urea Nitrogen 39 mg/dL (7-17); Calcium 7.9 mg/dL (8.4-10.2); Carbon Dioxide 18 mmol/L (22-30); Chloride 102 mmol/L (98-107); Glucose 106 mg/dL (74-99); Non-African American GFR(CKD) 21 (>60 ml/min/1.73 sqM); Potassium 4.3 mmol/L (3.5-5.1); Sodium 130 mmol/L (137-145); Total Bilirubin 0.5 mg/dL (0.2-1.3); Total Protein 5.3 g/dL (6.3-8.2)
[2023-09-27] MEDS: KETOROLAC 15 MG/ML 1 ML VIAL IVP STA (20:57)
--- NOTE | 2023-09-27 21:05 | ED ---
Abdominal Pain HPI - General Chief Complaint: Abdominal Pain Stated Complaint: Abd pain, bloating Time Seen by Provider: 09/27/23 18:48 Source: patient Mode of arrival: ambulatory - History of Present Illness Initial Comments: 67-year-old female presenting to the ED with complaints of abdominal pain, chills, rigors. Patient recently seen at this facility on 09/25/2023. At this time found to have hydronephrosis secondary to a 3 to 4 mm obstructing right UPJ stone. Since then, reports has had hematuria and has not yet passed the stone and is now starting to have some increasing abdominal pain, chills, rigors. No chest pain shortness of breath. No other complaints at this time. - Related Data Home Medications Medication Instructions Recorded Confirmed Olmesartan/Hydrochlorothiazide 1 tab PO DAILY 08/02/21 09/25/23 [Olmesartan-Hctz 40-12.5 mg Tab] Omeprazole 20 mg PO DAILY 08/02/21 09/25/23 Acetaminophen [Tylenol Arthritis] 650 - 1,300 mg PO TID PRN 09/25/23 09/25/23 Dhea 20mg 1 cap PO DAILY 09/25/23 09/25/23 Estradiol 8mg/Gm Cream 0.25 gm TOPICAL HS 09/25/23 09/25/23 Testosterone 40mg/Gm Cream 0.25 gm TOPICAL HS 09/25/23 09/25/23 Thyroid,Pork [Investment Consultant Thyroid] 90 mg PO DAILY 09/25/23 09/25/23 Allergies Allergy/AdvReac Type Severity Reaction Status Date / Time codeine AdvReac Nausea & Verified 09/25/23 17:40 Vomiting Review of Systems ROS Statement: Those systems with pertinent positive or pertinent negative responses have been documented in the HPI. ROS Other: All systems not noted in ROS Statement are negative. 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 Past Anesthesia/Blood Transfusion Reactions: Motion Sickness, Postoperative Nausea & Vomiting (PONV) Past Psychological History: Depression Smoking Status: Never smoker Past Alcohol Use History: Rare Past Drug Use History: None Reported - Past Family History Father Family Medical History: Deep Vein Thrombosis (DVT) General Exam General appearance: alert, in no apparent distress Eye exam: Present: normal appearance Neck exam: Present: normal inspection Respiratory exam: Present: normal lung sounds bilaterally Cardiovascular Exam: Present: tachycardia GI/Abdominal exam: Present: soft, tenderness, normal bowel sounds, other (Right CVA tenderness to percussion.). Absent: distended, guarding, rebound, rigid Extremities exam: Present: normal inspection Back exam: Present: normal inspection Neurological exam: Present: alert, oriented X3 Course Vital Signs 09/27/23 09/27/23 17:28 20:01 Temperature 97.8 F 99.5 F Pulse Rate 125 H 118 H Respiratory 18 15 Rate Blood Pressure 112/75 108/61 O2 Sat by Pulse 97 95 Oximetry Medical Decision Making - Medical Decision Making Was pt. sent in by a medical professional or institution (, PA, BIOINFORMATICS ASSOCIATE, urgent care, hospital, or custodial...) When possible be specific @ -No Did you speak to anyone other than the patient for history (EMS, parent, family, police, friend...)? What history was obtained from this source @ -No Did you review nursing and triage notes (agree or disagree)? Why? @ -I reviewed and agree with nursing and triage notes Were old charts reviewed (outside hosp., previous admission, EMS record, old EKG, old radiological studies, urgent care reports/EKG's, custodial records)? Report findings @ -Prior visit reviewed. For further details please see MDM. Differential Diagnosis (chest pain, altered mental status, abdominal pain women, abdominal pain men, vaginal bleeding, weakness, fever, dyspnea, syncope, headache, dizziness, GI bleed, back pain, seizure, CVA, palpatations, mental health, musculoskeletal)? @ -Differential Abdominal Pain Women: Appendicitis, Cholecystitis, diverticulosis, ischemic bowel, pancreatitis, hepatitis, UTI, gastroenteritis, AAA, incarcerated hernia, bowel obstruction, constipation, inflammatory bowel, hepatitis, peptic ulcer disease, splenic infarction, perforated viscus, vulvitis, ovarian torsion, PID, kidney stone, placenta abruption, this is not meant to be an all-inclusive list EKG interpreted by me (3pts min.). @ -EKG interpreted me showing a sinus tachycardia without acute ST or T wave changes 21 bpm. LA 98, QRS 81, QT/QTc 296/368. X-rays interpreted by me (1pt min.). @ -None done CT interpreted by me (1pt min.). @ -None done U/S interpreted by me (1pt. min.). @ -None done What testing was considered but not performed or refused? (CT, X-rays, U/S, labs)? Why? @ -None What meds were considered but not given or refused? Why? @ -None Did you discuss the management of the patient with other professionals (lisa suarez i.e. , PA, BIOINFORMATICS ASSOCIATE, lab, RT, psych nurse, psych social worker, skip tracer, teacher, youth probation officer, case assistant)? Give summary @ -Case discussed with Dr. Dean, who will see the patient tomorrow. Patient will be kept NPO. Case discussed with Shilpa, who accepts admission under [facility]. Was smoking cessation discussed for >3mins.? @ -No Was critical care preformed (if so, how long)? @ -Yes, 35 minutes sepsis Were there social determinants of health that impacted care today? How? (Homelessness, low income, unemployed, alcoholism, drug addiction, t ransportation, low edu. Level, literacy, decrease access to med. care, intermediate, rehab)? @ -No Was there de-escalation of care discussed even if they declined (Discuss DNR or withdrawal of care, Hospice)? DNR status @ -No What co-morbidities impacted this encounter? (DM, HTN, Smoking, COPD, CAD, Cance r, CVA, ARF, Chemo, Hep., AIDS, mental health diagnosis, sleep apnea, morbid obesity)? @ -None Was patient admitted / discharged? Hospital course, mention meds given and route, prescriptions, significant lab abnormalities, going to OR and other pertinent info. @ -Admission 67-year-old female seen here on 09/25/2023 found to have an obstructing right 4 mm UPJ stone presented to the ED with complaints of increasing abdominal pain, chills, rigors. Patient officially met sepsis criteria at 1929 with an elevated white blood cell count of 14.8 however lactic acid 1.2. Chemistry panel does reveal evidence of kidney injury with BUN at 39 creatinine at 2.35.. Urine does look infected with large leukocyte Estrace, greater than 182 white blood cells, and many bacteria. Provided 2 L of IV fluids at 1935. 2 g of ceftriaxone at 1938. Blood and urine cultures were ordered at 1934. Patient will be admitted and kept n.p.o. for stent placement tomorrow. Undiagnosed new problem with uncertain prognosis? @ -No Drug Therapy requiring intensive monitoring for toxicity (Heparin, Nitro, Insulin, Cardizem)? @ -No Were any procedures done? @ -No Diagnosis/symptom? @ -4 mm right UPJ stone, sepsis, pyelonephritis Acute, or Chronic, or Acute on Chronic? @ -Acute Uncomplicated (without systemic symptoms) or Complicated (systemic symptoms)? @ -Complicated Side effects of treatment? @ -No Exacerbation, Progression, or Severe Exacerbation? @ -No Poses a threat to life or bodily function? How? (Chest pain, USA, SD, pneumonia, PE, COPD, DKA, ARF, appy, cholecystitis, CVA, Diverticulitis, Homicidal, Suicidal, threat to staff... and all critical care pts) @ -Yes, sepsis - Lab Data Result diagrams: 09/27/23 19:29 09/27/23 20:02 Lab Results 09/27/23 09/27/23 09/27/23 Range/Units 19:29 19:50 20:02 WBC 14.8 H (3.8-10.6) k/uL RBC 4.26 (3.80-5.40) m/uL Hgb 12.4 (11.4-16.0) gm/dL Hct 38.5 (34.0-46.0) % MCV 90.4 (80.0-100.0) fL MCH 29.2 (25.0-35.0) pg MCHC 32.3 (31.0-37.0) g/dL RDW 13.1 (11.5-15.5) % Plt Count 195 (150-450) k/uL MPV 7.9 Neutrophils % 93 % Lymphocytes % 2 % Monocytes % 3 % Eosinophils % 1 % Basophils % 0 % Neutrophils # 13.8 H (1.3-7.7) k/uL Lymphocytes # 0.4 L (1.0-4.8) k/uL Monocytes # 0.4 (0-1.0) k/uL Eosinophils # 0.1 (0-0.7) k/uL Basophils # 0.0 (0-0.2) k/uL Sodium (137-145) mmol/L Potassium (3.5-5.1) mmol/L Chloride (98-107) mmol/L Carbon Dioxide (22-30) mmol/L Anion Gap mmol/L BUN (7-17) mg/dL Creatinine (0.52-1.04) mg/dL Est GFR (CKD-EPI)AfAm (>60 ml/min/1.73 sqM) Est GFR (CKD-EPI)NonAf (>60 ml/min/1.73 sqM) Glucose (74-99) mg/dL Plasma Lactic Acid Raymond 1.2 (0.7-2.0) mmol/L Calcium (8.4-10.2) mg/dL Total Bilirubin (0.2-1.3) mg/dL AST (14-36) U/L ALT (4-34) U/L Alkaline Phosphatase (38-126) U/L Total Protein (6.3-8.2) g/dL Albumin (3.5-5.0) g/dL Urine Color Yellow Urine Appearance Turbid H (Clear) Urine pH 5.5 (5.0-8.0) Ur Specific [place] 1.014 (1.001-1.035) Urine Protein 1+ H (Negative) Urine Glucose (UA) Negative (Negative) Urine Ketones Negative (Negative) Urine Blood Small H (Negative) Urine Nitrite Negative (Negative) Urine Bilirubin Negative (Negative) Urine Urobilinogen <2.0 (<2.0) mg/dL Ur Leukocyte Esterase Large H (Negative) Urine RBC 5 (0-5) /hpf Urine WBC >182 H (0-5) /hpf Ur Squamous Epith Cells 2 (0-4) /hpf Amorphous Sediment Many H (None) /hpf Urine Bacteria Many H (None) /hpf Hyaline Casts 21 H (0-2) /lpf Granular Casts 49 (0) /lpf Urine Mucus Few H (None) /hpf 05// Range/Units 20:02 WBC (3.8-10.6) k/uL RBC (3.80-5.40) m/uL Hgb (11.4-16.0) gm/dL Hct (34.0-46.0) % MCV (80.0-100.0) fL MCH (25.0-35.0) pg MCHC (31.0-37.0) g/dL RDW (11.5-15.5) % Plt Count (150-450) k/uL MPV Neutrophils % % Lymphocytes % % Monocytes % % Eosinophils % % Basophils % % Neutrophils # (1.3-7.7) k/uL Lymphocytes # (1.0-4.8) k/uL Monocytes # (0-1.0) k/uL Eosinophils # (0-0.7) k/uL Basophils # (0-0.2) k/uL Sodium 130 L (137-145) mmol/L Potassium 4.3 (3.5-5.1) mmol/L Chloride 102 (98-107) mmol/L Carbon Dioxide 18 L (22-30) mmol/L Anion Gap 10 mmol/L BUN 39 H (7-17) mg/dL Creatinine 2.35 H (0.52-1.04) mg/dL Est GFR (CKD-EPI)AfAm 24 (>60 ml/min/1.73 sqM) Est GFR (CKD-EPI)NonAf 21 (>60 ml/min/1.73 sqM) Glucose 106 H (74-99) mg/dL Plasma Lactic Acid Raymond (0.7-2.0) mmol/L Calcium 7.9 L (8.4-10.2) mg/dL Total Bilirubin 0.5 (0.2-1.3) mg/dL AST 28 (14-36) U/L ALT 18 (4-34) U/L Alkaline Phosphatase 86 (38-126) U/L Total Protein 5.3 L (6.3-8.2) g/dL Albumin 2.7 L (3.5-5.0) g/dL Urine Color Urine Appearance (Clear) Urine pH (5.0-8.0) Ur Specific [place] (1.001-1.035) Urine Protein (Negative) Urine Glucose (UA) (Negative) Urine Ketones (Negative) Urine Blood (Negative) Urine Nitrite (Negative) Urine Bilirubin (Negative) Urine Urobilinogen (<2.0) mg/dL Ur Leukocyte Esterase (Negative) Urine RBC (0-5) /hpf Urine WBC (0-5) /hpf Ur Squamous Epith Cells (0-4) /hpf Amorphous Sediment (None) /hpf Urine Bacteria (None) /hpf Hyaline Casts (0-2) /lpf Granular Casts (0) /lpf Urine Mucus (None) /hpf Disposition Clinical Impression: Sepsis, Kidney stone, Pyelonephritis Disposition: ADMITTED IP TO THIS HOSP Condition: Fair Referrals: Tete Curtis MD [Primary Care Provider] - 1-2 days Time of Disposition: 20:45
[2023-09-27] MEDS ORDERED: NALOXONE 0.4 MG/ML 1 ML VIAL IV PRN (21:14)
[2023-09-27] MEDS ORDERED: ONDANSETRON 4 MG/2 ML VIAL IVP PRN (21:14)
[2023-09-27] MEDS ORDERED: ACETAMINOPHEN TAB 325 MG TAB PO PRN ×2 (21:14→21:17)
[2023-09-27] MEDS: SODIUM CHLORIDE 0.9% 1,000 ML IV SCH (21:54)
[2023-09-27 22:22] LABS: INR 1.2 (<1.2); Partial Thromboplastin Time 24.6 sec (22.0-30.0); Prothrombin Time 12.4 sec (10.0-12.5)
[2023-09-28 03:41] LABS: Basophils % (A) 0 %; Eosinophils # (A) 0.1 k/uL (0-0.7); Eosinophils % (A) 1 %; HCT 32.7 % (34.0-46.0); HGB 10.4 gm/dL (11.4-16.0); Lymphocytes # (A) 0.6 k/uL (1.0-4.8); Lymphocytes % (A) 6 %; MCH 28.8 pg (25.0-35.0); MCHC 31.8 g/dL (31.0-37.0); MCV 90.5 fL (80.0-100.0); Mean Platelet Volume 7.6; Monocytes # (A) 0.3 k/uL (0-1.0); Monocytes % (A) 4 %; Neutrophils # (A) 8.7 k/uL (1.3-7.7); Neutrophils % (A) 88 %; Platelet Count 161 k/uL (150-450); RBC 3.61 m/uL (3.80-5.40); RDW 13.1 % (11.5-15.5); WBC 9.8 k/uL (3.8-10.6)
[2023-09-28 04:15] LABS: African American GFR (CKD) 21 (>60 ml/min/1.73 sqM); Anion Gap 8 mmol/L; Blood Urea Nitrogen 41 mg/dL (7-17); Calcium 7.3 mg/dL (8.4-10.2); Carbon Dioxide 18 mmol/L (22-30); Chloride 106 mmol/L (98-107); Glucose 95 mg/dL (74-99); Non-African American GFR(CKD) 18 (>60 ml/min/1.73 sqM); Potassium 4.2 mmol/L (3.5-5.1); Sodium 132 mmol/L (137-145)
[2023-09-28] MEDS: ALBUTEROL NEBULIZED 2.5 MG/3 ML INHALATION PRN (04:45)
[2023-09-28] MEDS ORDERED: ALBUTEROL NEBULIZED 2.5 MG/3 ML INHALATION PRN ×2 (04:55→19:15)
[2023-09-28] MEDS: PANTOPRAZOLE 40 MG TABLET PO SCH (09:59)
--- NOTE | 2023-09-28 10:12 | XR ---
KUB. HISTORY: Follow-up ureteral COMPARISON: None TECHNIQUE: Supine portable view of the abdomen was obtained. FINDINGS: The bowel gas pattern is nonspecific and there is no evidence of obstruction. No suspicious abdominal or pelvic calcifications are seen. There is a foreign body in the left hemipelvis consistent with a surgical sponge. IMPRESSION: 1. Nonspecific bowel gas pattern. 2. Surgical sponge in the left hemipelvis
[2023-09-28] MEDS: KETOROLAC 15 MG/ML 1 ML VIAL IVP PRN (10:45)
[2023-09-28] MEDS: IV FLUID CONTINUATION 1,000 ML IV ONE (12:11)
[2023-09-28] MEDS: ONDANSETRON 4 MG/2 ML VIAL IVP ONE (12:38)
[2023-09-28] MEDS: DEXAMETHASONE SOD PHOSPHATE 4 MG/ML 1 ML VIAL IVP ONE (12:38)
[2023-09-28] MEDS ORDERED: PHENYLEPHRINE 10 MG/ML VIAL ONE (12:46)
[2023-09-28] MEDS ORDERED: ceFAZolin 1 GM/50 ML BAG (PMX) ONE (12:46)
[2023-09-28] MEDS ORDERED: MIDAZOLAM 2 MG/2 ML VIAL ONE (12:46)
[2023-09-28] MEDS ORDERED: fentaNYL (PF) 50 MCG/ML 2 ML AMP ONE (12:46)
[2023-09-28] MEDS ORDERED: LIDOCAINE 1% INJ 10MG/ML (20 ML MDV) ONE (12:46)
[2023-09-28] MEDS ORDERED: PROPOFOL 10 MG/ML 20 ML VIAL IV ONE (12:46)
--- NOTE | 2023-09-28 13:05 | P.HPIM ---
History of Present Illness H&P Date: 09/28/23 Chief Complaint: Abdominal pain * 67-year-old with past medical history of hypertension, asthma, gastroesophageal reflux disease, history of thyroid disorder. S/p thyroidectomy presents to the emergency department with complaints of abdominal pain, fever, chills. * Patient had similar presentation about few days ago and was in the emergency at that time patient was noted to have hydronephrosis and right UPJ stone. Patient presents with similar complaints however concern for infectious process as well * Workup initiated in ER include WBC which was 14.8, serum chemistry showed sodium 130 potassium 4.2 BUN 39 creatinine 2.35 lactate of 1.2 calcium was 7.9 INR of 1.2 * Urine analysis obtained showed large leukocyte esterase, many bacteria, * While in ER patient was given fluid bolus, patient was given IV antibiotic as well. * Urology has been consulted for further evaluation and intervention as needed REVIEW OF SYSTEMS: Flank pain, abdominal pain, chills, rigors CONSTITUTIONAL: No fever, no malaise, no fatigue. HEENT: No recent visual problems or hearing problems. Denied any sore throat. CARDIOVASCULAR: No chest pain, orthopnea, PND, no palpitations, no syncope. PULMONARY: No shortness of breath, no cough, no hemoptysis. GASTROINTESTINAL: No diarrhea, no nausea, no vomiting, no abdominal pain. NEUROLOGICAL: No headaches, no weakness, no numbness. HEMATOLOGICAL: Denies any bleeding or petechiae. GENITOURINARY: Flank pain, abdominal pain, chills, rigors MUSCULOSKELETAL/RHEUMATOLOGICAL: Denies any joint pain, swelling, or any muscle pain. ENDOCRINE: Denies any polyuria or polydipsia. PHYSICAL EXAMINATION: GENERAL: The patient is alert and oriented x3, ill appearance HEENT: Pupils are round and equally reacting to light. EOMI. Normocephalic, atraumatic. CARDIOVASCULAR: S1 and S2 present. No murmurs, rubs, or gallops. PULMONARY: Chest is clear to auscultation, no wheezing or crackles. ABDOMEN: Soft, nontender, nondistended, normoactive bowel sounds. No palpable organomegaly. MUSCULOSKELETAL: No joint swelling or deformity. EXTREMITIES: No cyanosis, clubbing, or pedal edema. NEUROLOGICAL: Gross neurological examination did not reveal any focal deficits. SKIN: No rashes Assessment and plan * Urinary tract infection with right ureteral stone * Right ureteral stone with hydronephrosis * Sepsis secondary to urinary tract infection * Acute kidney injury secondary to obstructive hydronephrosis * Hypertension * Thyroid disorder * In regards to urinary tract infection, continue patient on IV Rocephin, urine cultures ordered * In regards to ureteral stone, urology consulted patient n.p.o. in anticipation of procedure * In regards to sepsis, blood cultures and urine cultures collected continue IV Rocephin day 1 * In regards to acute kidney injury likely secondary to obstructive uropathy, follow-up on renal profile continue IV hydration * In regards to thyroid disorder patient is on thyroid replacement to be resumed once confirmed * CODE STATUS is full code Past Medical History Past Medical History: Asthma, GERD/Reflux, Hypertension, Sleep Apnea/CPAP/BIPAP, Thyroid Disorder Additional Past Medical History / Comment(s): takes several bio identical hormones @home normally History of Any Multi-Drug Resistant Organisms: None Reported Past Surgical History: Bariatric Surgery, Orthopedic Surgery Additional Past Surgical History / Comment(s): partial thyroidectomy, partial parathyroidectomy, 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 Past Anesthesia/Blood Transfusion Reactions: Motion Sickness, Postoperative Nausea & Vomiting (PONV) Past Psychological History: Depression Smoking Status: Never smoker Past Alcohol Use History: Rare Past Drug Use History: None Reported - Past Family History Father Family Medical History: Deep Vein Thrombosis (DVT) Medications and Allergies Home Medications Medication Instructions Recorded Confirmed Type Olmesartan/Hydrochlorothiazide 1 tab PO DAILY 08/02/21 09/28/23 History [Olmesartan-Hctz 40-12.5 mg Tab] Omeprazole 20 mg PO DAILY 08/02/21 09/28/23 History Acetaminophen [Tylenol Arthritis] 650 - 1,300 mg PO TID PRN 09/25/23 09/28/23 History Dhea 20mg 1 cap PO DAILY 09/25/23 09/28/23 History Estradiol 8mg/Gm Cream 0.25 gm TOPICAL HS 09/25/23 09/28/23 History Testosterone 40mg/Gm Cream 0.25 gm TOPICAL HS 09/25/23 09/28/23 History Thyroid,Pork [Coke Worker Thyroid] 90 mg PO DAILY 09/25/23 09/28/23 History Allergies Allergy/AdvReac Type Severity Reaction Status Date / Time codeine AdvReac Nausea & Verified 09/28/23 10:56 Vomiting Physical Exam Vitals: Vital Signs Temp Pulse Pulse Resp BP BP Pulse Ox 09/28/23 07:33 97.7 F 113 H 18 112/62 95 09/28/23 07:03 96 16 110/62 96 09/28/23 04:54 70 09/28/23 04:44 69 09/28/23 03:44 68 16 116/58 97 09/28/23 01:11 70 18 99/66 94 L 09/27/23 23:00 78 11 L 96 09/27/23 20:01 99.5 F 118 H 15 108/61 95 09/27/23 17:28 97.8 F 125 H 18 112/75 97 Intake and Output 09/27/23 09/28/23 09/28/23 22:59 06:59 14:59 Other: Weight 200 kg Results CBC & Chem 7: 09/28/23 03:13 09/28/23 03:13 Labs: Abnormal Lab Results - Last 24 Hours (Table) 09/27/23 09/27/23 09/27/23 Range/Units 19:29 20:02 20:02 WBC 14.8 H (3.8-10.6) k/uL RBC (3.80-5.40) m/uL Hgb (11.4-16.0) gm/dL Hct (34.0-46.0) % Neutrophils # 13.8 H (1.3-7.7) k/uL Lymphocytes # 0.4 L (1.0-4.8) k/uL INR (<1.2) Sodium 130 L (137-145) mmol/L Carbon Dioxide 18 L (22-30) mmol/L BUN 39 H (7-17) mg/dL Creatinine 2.35 H (0.52-1.04) mg/dL Glucose 106 H (74-99) mg/dL Calcium 7.9 L (8.4-10.2) mg/dL Total Protein 5.3 L (6.3-8.2) g/dL Albumin 2.7 L (3.5-5.0) g/dL Urine Appearance Turbid H (Clear) Urine Protein 1+ H (Negative) Urine Blood Small H (Negative) Ur Leukocyte Esterase Large H (Negative) Urine WBC >182 H (0-5) /hpf Amorphous Sediment Many H (None) /hpf Urine Bacteria Many H (None) /hpf Hyaline Casts 21 H (0-2) /lpf Urine Mucus Few H (None) /hpf 09/27/23 09/28/23 09/28/23 Range/Units 21:39 03:13 03:13 WBC (3.8-10.6) k/uL RBC 3.61 L (3.80-5.40) m/uL Hgb 10.4 L (11.4-16.0) gm/dL Hct 32.7 L (34.0-46.0) % Neutrophils # 8.7 H (1.3-7.7) k/uL Lymphocytes # 0.6 L (1.0-4.8) k/uL INR 1.2 H (<1.2) Sodium 132 L (137-145) mmol/L Carbon Dioxide 18 L (22-30) mmol/L BUN 41 H (7-17) mg/dL Creatinine 2.66 H (0.52-1.04) mg/dL Glucose (74-99) mg/dL Calcium 7.3 L (8.4-10.2) mg/dL Total Protein (6.3-8.2) g/dL Albumin (3.5-5.0) g/dL Urine Appearance (Clear) Urine Protein (Negative) Urine Blood (Negative) Ur Leukocyte Esterase (Negative) Urine WBC (0-5) /hpf Amorphous Sediment (None) /hpf Urine Bacteria (None) /hpf Hyaline Casts (0-2) /lpf Urine Mucus (None) /hpf
[2023-09-28] MEDS: SODIUM CHLORIDE 0.9% 50 ML with ceFAZolin 2,000 MG IV ONE (13:07)
--- NOTE | 2023-09-28 13:28 | FL ---
Intraoperative fluoroscopy HISTORY: Right ureteral stent placement. TECHNIQUE: 2 spot films and 2.5 seconds of fluoroscopy was provided for the placement of a right uret eral stent. IMPRESSION: Fluoroscopy for right ureteral stent placement
--- NOTE | 2023-09-28 14:14 | P.GSCN ---
History of Present Illness Consult date: 09/28/23 Reason for Consult: Right ureteral stone History of present illness: This is a 67-year-old female that presented to the hospital with flank pain associated with subjective fevers and chills. She was recently seen in the emergency department with flank pain underwent a CT abdomen pelvis that showed evidence of a 4 mm right-sided proximal stone, but when she was at home symptoms got worse and now she is having the fevers and chills in addition. She is also been complaining of abdominal distention. Denies any gross hematuria or dysuria. Denies any nausea or vomiting. Does have previous history of kidney stones which she has passed spontaneously, never required any intervention for her kidney stones. On presentation to the ER she was tachycardic and her temperature was 99.7. Urinalysis was concerning for UTI her creatinine was e levated at 2.3 from a baseline of 1.0, her creatinine was further elevated this morning to 2.6. Review of Systems - Constitutional Reports chills, Reports fever, Reports weakness - EENT Ears, nose, mouth and throat: Denies dysphagia - Cardiovascular Denies chest pain, Denies shortness of breath - Respiratory Denies cough, Denies 7 - Gastrointestinal Reports abdominal pain, Denies nausea, Denies vomiting - Genitourinary Genitourinary: Reports flank pain Past Medical History Past Medical History: Asthma, GERD/Reflux, Hypertension, Sleep Apnea/CPAP/BIPAP, Thyroid Disorder Additional Past Medical History / Comment(s): takes several bio identical hormones @home normally History of Any Multi-Drug Resistant Organisms: None Reported Past Surgical History: Bariatric Surgery, Orthopedic Surgery Additional Past Surgical History / Comment(s): partial thyroidectomy, partial parathyroidectomy, 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 Past Anesthesia/Blood Transfusion Reactions: Motion Sickness, Postoperative Nausea & Vomiting (PONV) Past Psychological History: Depression Smoking Status: Never smoker Past Alcohol Use History: None Reported Past Drug Use History: None Reported - Past Family History Father Family Medical History: Deep Vein Thrombosis (DVT) Medications and Allergies Home Medications Medication Instructions Recorded Confirmed Type Olmesartan/Hydrochlorothiazide 1 tab PO DAILY 08/02/21 09/28/23 History [Olmesartan-Hctz 40-12.5 mg Tab] Omeprazole 20 mg PO DAILY 08/02/21 09/28/23 History Acetaminophen [Tylenol Arthritis] 650 - 1,300 mg PO TID PRN 09/25/23 09/28/23 History Dhea 20mg 1 cap PO DAILY 09/25/23 09/28/23 History Estradiol 8mg/Gm Cream 0.25 gm TOPICAL HS 09/25/23 09/28/23 History Testosterone 40mg/Gm Cream 0.25 gm TOPICAL HS 09/25/23 09/28/23 History Thyroid,Pork [Integrated [employer]er Thyroid] 90 mg PO DAILY 09/25/23 09/28/23 History Allergies Allergy/AdvReac Type Severity Reaction Status Date / Time codeine AdvReac Nausea & Verified 09/28/23 10:56 Vomiting Surgical - Exam Vital Signs Temp Pulse Resp BP Pulse Ox 97.8 F 125 H 18 112/75 97 09/27/23 17:28 09/27/23 17:28 09/27/23 17:28 09/27/23 17:28 09/27/23 17:28 - General no distress, moderate pain - Eyes normal ocular movement, no pale - ENT normal nares, normal mucosa - Respiratory normal expansion, normal respiratory effort - Abdomen Abdomen: soft, tender (Right flank, diffuse abdominal tenderness), distended - Psychiatric oriented to time, oriented to person, oriented to place Results - Labs 09/28/23 03:13 09/28/23 03:13 Abnormal Lab Results - Last 24 Hours (Table) 09/27/23 09/27/23 09/27/23 Range/Units 19:29 20:02 20:02 WBC 14.8 H (3.8-10.6) k/uL RBC (3.80-5.40) m/uL Hgb (11.4-16.0) gm/dL Hct (34.0-46.0) % Neutrophils # 13.8 H (1.3-7.7) k/uL Lymphocytes # 0.4 L (1.0-4.8) k/uL INR (<1.2) Sodium 130 L (137-145) mmol/L Carbon Dioxide 18 L (22-30) mmol/L BUN 39 H (7-17) mg/dL Creatinine 2.35 H (0.52-1.04) mg/dL Glucose 106 H (74-99) mg/dL Calcium 7.9 L (8.4-10.2) mg/dL Total Protein 5.3 L (6.3-8.2) g/dL Albumin 2.7 L (3.5-5.0) g/dL Urine Appearance Turbid H (Clear) Urine Protein 1+ H (Negative) Urine Blood Small H (Negative) Ur Leukocyte Esterase Large H (Negative) Urine WBC >182 H (0-5) /hpf Amorphous Sediment Many H (None) /hpf Urine Bacteria Many H (None) /hpf Hyaline Casts 21 H (0-2) /lpf Urine Mucus Few H (None) /hpf 09/27/23 09/28/23 09/28/23 Range/Units 21:39 03:13 03:13 WBC (3.8-10.6) k/uL RBC 3.61 L (3.80-5.40) m/uL Hgb 10.4 L (11.4-16.0) gm/dL Hct 32.7 L (34.0-46.0) % Neutrophils # 8.7 H (1.3-7.7) k/uL Lymphocytes # 0.6 L (1.0-4.8) k/uL INR 1.2 H (<1.2) Sodium 132 L (137-145) mmol/L Carbon Dioxide 18 L (22-30) mmol/L BUN 41 H (7-17) mg/dL Creatinine 2.66 H (0.52-1.04) mg/dL Glucose (74-99) mg/dL Calcium 7.3 L (8.4-10.2) mg/dL Total Protein (6.3-8.2) g/dL Albumin (3.5-5.0) g/dL Urine Appearance (Clear) Urine Protein (Negative) Urine Blood (Negative) Ur Leukocyte Esterase (Negative) Urine WBC (0-5) /hpf Amorphous Sediment (None) /hpf Urine Bacteria (None) /hpf Hyaline Casts (0-2) /lpf Urine Mucus (None) /hpf Diabetes panel 09/27/23 09/28/23 Range/Units 20:02 03:13 Sodium 130 L 132 L (137-145) mmol/L Potassium 4.3 4.2 (3.5-5.1) mmol/L Chloride 102 106 (98-107) mmol/L Carbon Dioxide 18 L 18 L (22-30) mmol/L BUN 39 H 41 H (7-17) mg/dL Creatinine 2.35 H 2.66 H (0.52-1.04) mg/dL Glucose 106 H 95 (74-99) mg/dL Calcium 7.9 L 7.3 L (8.4-10.2) mg/dL AST 28 (14-36) U/L ALT 18 (4-34) U/L Alkaline Phosphatase 86 (38-126) U/L Total Protein 5.3 L (6.3-8.2) g/dL Albumin 2.7 L (3.5-5.0) g/dL Calcium panel 09/27/23 09/28/23 Range/Units 20:02 03:13 Calcium 7.9 L 7.3 L (8.4-10.2) mg/dL Albumin 2.7 L (3.5-5.0) g/dL Pituitary panel 09/27/23 09/28/23 Range/Units 20:02 03:13 Sodium 130 L 132 L (137-145) mmol/L Potassium 4.3 4.2 (3.5-5.1) mmol/L Chloride 102 106 (98-107) mmol/L Carbon Dioxide 18 L 18 L (22-30) mmol/L BUN 39 H 41 H (7-17) mg/dL Creatinine 2.35 H 2.66 H (0.52-1.04) mg/dL Glucose 106 H 95 (74-99) mg/dL Calcium 7.9 L 7.3 L (8.4-10.2) mg/dL Adrenal panel 09/27/23 09/28/23 Range/Units 20:02 03:13 Sodium 130 L 132 L (137-145) mmol/L Potassium 4.3 4.2 (3.5-5.1) mmol/L Chloride 102 106 (98-107) mmol/L Carbon Dioxide 18 L 18 L (22-30) mmol/L BUN 39 H 41 H (7-17) mg/dL Creatinine 2.35 H 2.66 H (0.52-1.04) mg/dL Glucose 106 H 95 (74-99) mg/dL Calcium 7.9 L 7.3 L (8.4-10.2) mg/dL Total Bilirubin 0.5 (0.2-1.3) mg/dL AST 28 (14-36) U/L ALT 18 (4-34) U/L Alkaline Phosphatase 86 (38-126) U/L Total Protein 5.3 L (6.3-8.2) g/dL Albumin 2.7 L (3.5-5.0) g/dL - Imaging CT scan - abdomen: image reviewed (3 mm right-sided proximal stone with moderate hydronephrosis, foreign body in the left lower quadrant) Assessment and Plan Assessment: 67-year-old female with a sepsis secondary to 3 mm right-sided proximal ureteral stone. Discussed with her given her UTI, and septic presentation I do recommend proceeding with stent insertion. Risk benefit and rationale of surgery was discussed in detail. Discussed eventually she will require a right-sided ureteroscopy with holmium laser and stent removal once her UTI resolves as an outpatient. Of note she does have a history of a known retained left MARIS drain within the left lower quadrant -Keep n.p.o. -OR for cystoscopy and right-sided stent insertion
--- NOTE | 2023-09-28 14:17 | P.OP ---
Date of Procedure: 09/28/23 Preoperative Diagnosis: Right ureteral stone Postoperative Diagnosis: Same Procedure(s) Performed: Cystoscopy and right stent insertion Anesthesia: OANH Surgeon: James Dean Estimated Blood Loss (ml): 0 Pathology: none sent Condition: stable Disposition: PACU Indications for Procedure: 67-year-old female with a sepsis secondary to 3 mm right-sided proximal ureteral stone. Discussed with her given her UTI, and septic presentation I do recommend proceeding with stent insertion. Risk benefit and rationale of surgery was discussed in detail. Discussed eventually she will require a right-sided ureteroscopy with holmium laser and stent removal once her UTI resolves as an o utpatient. Description of Procedure: Patient brought to the operating room, general anesthesia was induced. She was prepped and draped in sterile fashion placed in a dorsolithotomy position. Cystoscopy fitted with a 22 Tamazight sheath was inserted per urethra, cystoscopy was performed showed no abnormality within the bladder. Attention was then carried to the right ureteral orifice which was intubated with a Glidewire, wire was advanced under fluoroscopy into the right kidney. Next a ureteral stent was passed over the wire, the proximal curl was visualized on fluoroscopy and the distal curl visualized using the cystoscope. Cloudy urine drained from the collecting system. Of note the stone was radiolucent. Patient was awakened from anesthesia and taken to recovery in stable condition
--- NOTE | 2023-09-28 15:11 | XR ---
EXAMINATION TYPE: XR chest 2V DATE OF EXAM: 09/27/2023 10:00 PM CLINICAL INDICATION:Female, 67 years old with history of presurgical; [facility] COMPARISON: None TECHNIQUE: XR chest 2V. Frontal and lateral views of the chest.. FINDINGS: Lines/Tubes/Devices: EKG leads overlie the chest. No indwelling lines are seen. Heart/mediastinum: Heart appears mildly to moderately enlarged. Atherosclerotic calcifications are s een in the aorta. Pulmonary vascularity: Not increased, Lungs/Pleura: Scattered chronic senescent changes of the lungs. Lungs appear mildly hyperinflated wit h flattening of the hemidiaphragms and mild diffuse interstitial coarsening; COPD is a consideration. No focal consolidation, sizable pleural effusion, or visible pneumothorax. Musculoskeletal: No acute osseous abnormality demonstrated in the limits of the exam. Degenerative c hanges of the spine and shoulders. Other findings: None. IMPRESSION: No acute cardiopulmonary abnormality. Cardiomegaly without evidence of failure.
[2023-09-28] MEDS: ESTRADIOL TOPICAL SCH (22:28)
[2023-09-28] MEDS: PROGESTERONE 200 MG PO SCH (22:28)
--- NOTE | 2023-09-28 23:12 | P.CONS ---
History of Present Illness - Reason for Consult Consult date: 09/28/23 - History of Present Illness Patient is a 67-year-old female with a past medical history significant for hypertension reflux asthma sleep apnea and thyroid disorder along with depression recently diagnosed with the kidney stone on 09/25/2023 presenting back to the hospital concerning for abdominal pain chills and rigors that apparently has been getting worse for a day before presentation to the hospital patient has been complaining of pain mostly to the right flank area describing it to be sharp moderate to severe intensity without any radiation with associated nausea but no vomiting denies having any diarrhea no burning or frequency of urine patient on presentation to the hospital was afebrile and no fever have recorded subsequently patient was not tachycardic hypotensive or hypoxic and no need for supplemental oxygen she did have a white count of 14.8 with a left shift BUN and creatinine has been elevated urine has been positive patient did have a KUB x-ray with evidence of nonspecific bowel gas pattern surgical sponge in the left hemipelvis patient was taken to the OR and the patient is s/p cystoscopy and right ureteral stent placement patient did have blood cultures drawn which came back positive with gram-negative bacilli prompting this infectious disease consultation Past Medical History Past Medical History: Asthma, GERD/Reflux, Hypertension, Sleep Apnea/CPAP/BIPAP, Thyroid Disorder Additional Past Medical History / Comment(s): takes several bio identical hormones @home normally History of Any Multi-Drug Resistant Organisms: None Reported Past Surgical History: Bariatric Surgery, Orthopedic Surgery Additional Past Surgical History / Comment(s): partial thyroidectomy, partial parathyroidectomy, 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 Past Anesthesia/Blood Transfusion Reactions: Motion Sickness, Postoperative Naus ea & Vomiting (PONV) Past Psychological History: Depression Smoking Status: Never smoker Past Alcohol Use History: None Reported Past Drug Use History: None Reported - Past Family History Father Family Medical History: Deep Vein Thrombosis (DVT) Medications and Allergies Home Medications Medication Instructions Recorded Confirmed Type Olmesartan/Hydrochlorothiazide 1 tab PO DAILY 08/02/21 09/28/23 History [Olmesartan-Hctz 40-12.5 mg Tab] Omeprazole 20 mg PO DAILY 08/02/21 09/28/23 History Acetaminophen [Tylenol Arthritis] 650 - 1,300 mg PO TID PRN 09/25/23 09/28/23 History Dhea 20mg 1 cap PO DAILY 09/25/23 09/28/23 History Estradiol 8mg/Gm Cream 0.25 gm TOPICAL BID 09/25/23 09/28/23 History Testosterone 40mg/Gm Cream 0.25 gm TOPICAL HS 09/25/23 09/28/23 History Thyroid,Pork [Cap Sewer Thyroid] 90 mg PO DAILY 09/25/23 09/28/23 History Albuterol Sulfate [Proair 2 puff INHALATION Q6H PRN 09/28/23 09/28/23 History Respiclick] Progesterone, Micronized 200 mg PO HS 09/28/23 09/28/23 History [Progesterone] Allergies Allergy/AdvReac Type Severity Reaction Status Date / Time codeine AdvReac Nausea & Verified 09/28/23 10:56 Vomiting Physical Exam Vitals: Vital Signs Temp Pulse Pulse Resp BP BP BP 09/28/23 14:40 97.7 F 77 18 126/71 09/28/23 13:50 93 16 115/63 09/28/23 13:36 86 14 105/55 09/28/23 13:21 97.6 F 99 15 102/56 09/28/23 12:11 99.3 F 86 16 114/61 09/28/23 07:33 97.7 F 113 H 18 112/62 09/28/23 07:03 96 16 110/62 09/28/23 04:54 70 09/28/23 04:44 69 09/28/23 03:44 68 16 116/58 09/28/23 01:11 70 18 99/66 09/27/23 23:00 78 11 L 09/27/23 20:01 99.5 F 118 H 15 108/61 09/27/23 17:28 97.8 F 125 H 18 112/75 Pulse Ox 09/28/23 14:40 93 L 09/28/23 13:50 94 L 09/28/23 13:36 94 L 09/28/23 13:21 96 09/28/23 12:11 96 09/28/23 07:33 95 09/28/23 07:03 96 09/28/23 04:54 09/28/23 04:44 09/28/23 03:44 97 09/28/23 01:11 94 L 09/27/23 23:00 96 09/27/23 20:01 95 09/27/23 17:28 97 Intake and Output 09/28/23 09/28/23 09/28/23 06:59 14:59 22:59 Intake Total 950 Output Total 0 Balance 950 Intake: IV 950 Output: Estimated Blood Loss 0 Other: Weight 200 kg Results CBC & Chem 7: 09/28/23 03:13 09/28/23 03:13 Labs: Abnormal Lab Results - Last 24 Hours (Table) 09/27/23 09/27/23 09/27/23 Range/Units 19:29 20:02 20:02 WBC 14.8 H (3.8-10.6) k/uL RBC (3.80-5.40) m/uL Hgb (11.4-16.0) gm/dL Hct (34.0-46.0) % Neutrophils # 13.8 H (1.3-7.7) k/uL Lymphocytes # 0.4 L (1.0-4.8) k/uL INR (<1.2) Sodium 130 L (137-145) mmol/L Carbon Dioxide 18 L (22-30) mmol/L BUN 39 H (7-17) mg/dL Creatinine 2.35 H (0.52-1.04) mg/dL Glucose 106 H (74-99) mg/dL Calcium 7.9 L (8.4-10.2) mg/dL Total Protein 5.3 L (6.3-8.2) g/dL Albumin 2.7 L (3.5-5.0) g/dL Urine Appearance Turbid H (Clear) Urine Protein 1+ H (Negative) Urine Blood Small H (Negative) Ur Leukocyte Esterase Large H (Negative) Urine WBC >182 H (0-5) /hpf Amorphous Sediment Many H (None) /hpf Urine Bacteria Many H (None) /hpf Hyaline Casts 21 H (0-2) /lpf Urine Mucus Few H (None) /hpf 09/27/23 09/28/23 09/28/23 Range/Units 21:39 03:13 03:13 WBC (3.8-10.6) k/uL RBC 3.61 L (3.80-5.40) m/uL Hgb 10.4 L (11.4-16.0) gm/dL Hct 32.7 L (34.0-46.0) % Neutrophils # 8.7 H (1.3-7.7) k/uL Lymphocytes # 0.6 L (1.0-4.8) k/uL INR 1.2 H (<1.2) Sodium 132 L (137-145) mmol/L Carbon Dioxide 18 L (22-30) mmol/L BUN 41 H (7-17) mg/dL Creatinine 2.66 H (0.52-1.04) mg/dL Glucose (74-99) mg/dL Calcium 7.3 L (8.4-10.2) mg/dL Total Protein (6.3-8.2) g/dL Albumin (3.5-5.0) g/dL Urine Appearance (Clear) Urine Protein (Negative) Urine Blood (Negative) Ur Leukocyte Esterase (Negative) Urine WBC (0-5) /hpf Amorphous Sediment (None) /hpf Urine Bacteria (None) /hpf Hyaline Casts (0-2) /lpf Urine Mucus (None) /hpf Microbiology - Last 24 Hours (Table) 09/27/23 19:50 Blood Culture Gram Stain - Preliminary Blood 09/27/23 19:35 Blood Culture Gram Stain - Preliminary Blood Blood Culture - Preliminary Molecular ID Assessment and Plan Plan: 1patient with gram-negative bacteremia source is complicated UTI in this patient who did have right-sided hydronephrosis requiring cystoscopy and ureteral stent placement. 2leukocytosis likely due to complicated UTI. 3renal insufficiency and high risk for nephrotoxicity. 4Rocephin 2 g daily while waiting for the culture to finalize we will follow on clinical condition and cultures to further adjust medication if needed Thank you for this consultation we will follow the patient along with you Dictation was produced using [employer] dictation software. please excuse any grammatical, word or spelling errors. Time with Patient: Greater than 30
[2023-09-29 08:38] LABS: Basophils # (A) 0.03 X 10*3/uL (0.00-0.10); Basophils % (A) 0.3 %; Eosinophils # (A) 0 X 10*3/uL (0.04-0.35); Eosinophils % (A) 0 %; HCT 32.9 % (37.2-46.3); HGB 10.7 g/dL (12.0-15.0); Lymphocytes # (A) 0.52 X 10*3/uL (0.90-5.00); Lymphocytes % (A) 4.3 %; MCH 28.8 pg (27.0-32.0); MCHC 32.5 g/dL (32.0-37.0); MCV 88.7 FL (80.0-97.0); Mean Platelet Volume 11.1 FL (9.5-12.2); Monocytes # (A) 0.69 X 10*3/uL (0.20-1.00); Monocytes % (A) 5.8 %; NRBC Per 100 WBC 0 X 10*3/uL (0.00-0.01); Neutrophils # (A) 10.63 X 10*3/uL (1.80-7.70); Neutrophils % (A) 88.7 %; Platelet Count 186 X 10*3/uL (140-440); RBC 3.71 X 10*6/uL (4.10-5.20); RDW 13.6 % (11.5-14.5); WBC 11.98 X 10*3/uL (4.50-10.00)
[2023-09-29 09:14] LABS: BUN/Creat Ratio 18.15 Ratio (12.00-20.00); Blood Urea Nitrogen 47.2 mg/dL (9.0-27.0); Calcium 7.5 mg/dL (8.7-10.3); Carbon Dioxide 16.5 mmol/L (21.6-31.8); Chloride 108 mmol/L (96-109); Glucose 121 mg/dL (70-110); Magnesium 2.1 mg/dL (1.5-2.4); Potassium 4.5 mmol/L (3.5-5.5); Sodium 137 mmol/L (135-145)
[2023-09-29] MEDS: ENOXAPARIN 40 MG/0.4 ML SYRINGE SQ SCH (10:34)
--- NOTE | 2023-09-29 10:38 | P.PN ---
Subjective Progress Note Date: 09/29/23 Principal diagnosis: UTI with sepsis Patient feels much better since undergoing placement of a right ureteral stent yesterday. Her only complaint at the time is increased urinary frequency. She is afebrile. Objective - Vital Signs Vital signs: Vital Signs Temp 97.9 F 09/29/23 07:07 Pulse 69 09/29/23 07:07 Resp 16 09/29/23 07:07 BP 134/74 09/29/23 07:07 Pulse Ox 96 09/29/23 09:01 FiO2 Intake & Output 09/28/23 09/29/23 09/29/23 18:59 06:59 18:59 Intake Total 950 Output Total 0 Balance 950 Weight 200 kg Intake: IV 950 Output: Estimated Blood Loss 0 Other: # Voids 2 4 1 - Constitutional General appearance: Present: average body habitus, cooperative, no acute distress - Psychiatric Psychiatric: Present: A&O x's 3 - Labs CBC & Chem 7: 09/29/23 05:21 09/29/23 05:21 Labs: Abnormal Lab Results - Last 24 Hours (Table) 09/29/23 09/29/23 Range/Units 05:21 05:21 WBC 11.98 H (4.50-10.00) X 10*3/uL RBC 3.71 L (4.10-5.20) X 10*6/uL Hgb 10.7 L (12.0-15.0) g/dL Hct 32.9 L (37.2-46.3) % Immature Gran # 0.11 H (0.00-0.04) X 10*3/uL Neutrophils # 10.63 H (1.80-7.70) X 10*3/uL Lymphocytes # 0.52 L (0.90-5.00) X 10*3/uL Eosinophils # 0 L (0.04-0.35) X 10*3/uL Carbon Dioxide 16.5 L (21.6-31.8) mmol/L Anion Gap 12.50 H (4.00-12.00) mmol/L BUN 47.2 H (9.0-27.0) mg/dL Creatinine 2.6 H (0.6-1.5) mg/dL Est GFR (CKD-EPI) 20 L (>=60) Glucose 121 H (70-110) mg/dL Calcium 7.5 L (8.7-10.3) mg/dL Microbiology - Last 24 Hours (Table) 09/27/23 19:50 Urine Culture - Preliminary Urine,Clean Catch Gram Neg Bacilli 09/27/23 19:35 Blood Culture Gram Stain - Preliminary Blood Blood Culture - Preliminary Molecular ID 09/27/23 19:50 Blood Culture Gram Stain - Preliminary Blood Assessment and Plan (1) Right ureteral calculus Current Visit: No Status: Acute Code(s): N20.1 - CALCULUS OF URETER SNOMED Code(s): 65942789 (2) Pyelonephritis Current Visit: Yes Status: Acute Code(s): N12 - TUBULO-INTERSTITIAL NEPHRITIS, NOT SPCF ACUTE OR CHRONIC SNOMED Code(s): 31555273 Plan: Urine culture obtained on September 25, 2023 showed greater than 100,000 E. coli species, sensitive to ceftriaxone. Blood cultures have shown gram-negative bacilli. From a urologic standpoint, she may be discharged home on appropriate oral antibiotics once deemed appropriate by ID. Arrangements will be made for her to undergo cystoscopy, right ureteral stent removal, and ureteroscopic removal of her right ureteral calculus in several weeks, after her infection has resolved.
--- NOTE | 2023-09-29 11:25 | P.NPCON ---
History of Present Illness - Reason for Consult acute renal failure - History of Present Illness Reason for consultation: Acute kidney injury History of present illness: Patient is a 67-year-old female seen in renal consultation for acute kidney injury. Patient's baseline creatinine is near 1 and peaked at 2.66 this admission and is stable at 2.6 today. Patient came to the hospital last week with abdominal pain and was diagnosed with a kidney stone. She was subsequently discharged home. Patient did not feel well and continued to have pain and severe shakes and chills and came back to the hospital. Patient's blood culture was positive for gram-negative bacilli and so was her urine culture. She is on antibiotics and is being followed by infectious disease. She denies use of nonsteroidals. Denies history of diabetes. Denies history of coronary artery disease. Patient states her father was on hemodialysis and underlying heart disease and passed over 20 years ago. Patient's CAT scan from September 25, 2023 showed right hydronephrosis due to obstructing right UPJ calculus. Patient underwent cystoscopy with right ureteral stent placement September 28, 2023. She admits to good urine output. Denies any gross hematuria or dysuria. Hemodynamically stable. She was taking olmesartan as well as hyd rochlorothiazide outpatient and both are currently held at this time. Denies chest pain or shortness of breath. Vital signs are stable. General: No acute distress. HEENT: Head exam is unremarkable. LUNGS: No audible rhonchi or wheezes. HEART: Rate and Rhythm are regular. ABDOMEN: Obese, nontender. EXTREMITITES: Trace edema. 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 Past Anesthesia/Blood Transfusion Reactions: Motion Sickness, Postoperative Nausea & Vomiting (PONV) Past Psychological History: Depression Smoking Status: Never smoker Past Alcohol Use History: None Reported Past Drug Use History: None Reported - Past Family History Father Family Medical History: Deep Vein Thrombosis (DVT) Medications and Allergies Home Medications Medication Instructions Recorded Confirmed Type Olmesartan/Hydrochlorothiazide 1 tab PO DAILY 08/02/21 09/28/23 History [Olmesartan-Hctz 40-12.5 mg Tab] Omeprazole 20 mg PO DAILY 08/02/21 09/28/23 History Acetaminophen [Tylenol Arthritis] 650 - 1,300 mg PO TID PRN 09/25/23 09/28/23 History Dhea 20mg 1 cap PO DAILY 09/25/23 09/28/23 History Estradiol 8mg/Gm Cream 0.25 gm TOPICAL BID 09/25/23 09/28/23 History Testosterone 40mg/Gm Cream 0.25 gm TOPICAL HS 09/25/23 09/28/23 History Thyroid,Pork [Orange Picker Thyroid] 90 mg PO DAILY 09/25/23 09/28/23 History Albuterol Sulfate [Proair 2 puff INHALATION Q6H PRN 09/28/23 09/28/23 History Respiclick] Progesterone, Micronized 200 mg PO HS 09/28/23 09/28/23 History [Progesterone] Allergies Allergy/AdvReac Type Severity Reaction Status Date / Time codeine AdvReac Nausea & Verified 09/28/23 10:56 Vomiting Physical Exam Vitals: Vital Signs Temp Pulse Resp BP BP Pulse Ox 09/29/23 09:01 96 09/29/23 07:07 97.9 F 69 16 134/74 97 09/29/23 01:03 97.5 F L 68 15 98/61 99 09/28/23 20:02 97.3 F L 76 17 129/85 97 09/28/23 16:40 70 111/76 93 L 09/28/23 16:25 79 121/80 94 L 09/28/23 16:10 71 114/77 94 L 09/28/23 15:55 74 125/80 94 L 09/28/23 15:40 71 117/72 93 L 09/28/23 15:25 72 100/68 94 L 09/28/23 15:10 81 117/65 95 09/28/23 14:55 72 114/79 92 L 09/28/23 14:40 97.7 F 77 18 126/71 93 L 09/28/23 13:50 93 16 115/63 94 L 09/28/23 13:36 86 14 105/55 94 L 09/28/23 13:21 97.6 F 99 15 102/56 96 09/28/23 12:11 99.3 F 86 16 114/61 96 Intake and Output 09/28/23 09/29/23 09/29/23 22:59 06:59 14:59 Other: # Voids 2 4 1 Results - Lab Results Most recent lab results Calcium 7.5 mg/dL (8.7-10.3) L 09/29/23 05:21 Magnesium 2.1 mg/dL (1.5-2.4) 09/29/23 05:21 09/29/23 05:21 09/29/23 05:21 Assessment and Plan Plan: Assessment: 1. Acute kidney injury secondary to septic ATN and component of obstructive uropathy. Creatinine peaked at 2.66 this admission and is stable at 2.6 today. Baseline creatinine near 1. 2. Severe sepsis secondary to E. coli UTI and bacteremia on antibiotics. ID following. 3. Right hydronephrosis secondary to obstructive calculus status post cystoscop y with ureteral stent placement September 28, 2023. 4. Benign hypertension. Controlled. 5. Metabolic acidosis secondary to acute kidney injury and IV fluids. 6. Hypovolemic hyponatremia improved with IV fluids. 7. Mild volume overload secondary to IV fluids. Plan: Hep-Lock IV fluids. Encouraged oral intake. 2 amps sodium bicarb IV push today. Add oral bicarb. Avoid nephrotoxins. Continue to monitor renal function and urine output. Thank you for the consultation. I will continue to follow the patient with you during her hospital stay.
[2023-09-29] MEDS: SODIUM BICARB 8.4% 50 ML SYR (1 MEQ/ML) IV STA (13:16)
[2023-09-29] MEDS: SODIUM BICARBONATE TAB 650 MG TAB PO SCH (13:16)
--- NOTE | 2023-09-29 13:32 | P.PN ---
Subjective Progress Note Date: 09/29/23 * 67-year-old with past medical history of hypertension, asthma, gastroesophageal reflux disease, history of thyroid disorder. S/p thyroidectomy presents to the emergency department with complaints of abdom inal pain, fever, chills. * Patient had similar presentation about few days ago and was in the emergency at that time patient was noted to have hydronephrosis and right UPJ stone. Patient presents with similar complaints however concern for infectious process as well * Workup initiated in ER include WBC which was 14.8, serum chemistry showed sodium 130 potassium 4.2 BUN 39 creatinine 2.35 lactate of 1.2 calcium was 7.9 INR of 1.2 * Urine analysis obtained showed large leukocyte esterase, many bacteria, * While in ER patient was given fluid bolus, patient was given IV antibiotic as well. * Urology has been consulted for further evaluation and intervention as needed * 09/29/23: Patient is seen and evaluated bedside, patient is s/p cystoscopy right ureteral stent placement. Follow-up blood work has been reviewed, CBC showed WBC 11.9, hemoglobin 10.7 platelet count of 186, serum chemistry sodium 137 potassium 4.5 carbon dioxide 16 BUN 47 creatinine 2.6, calcium of 7.5 magnesium of 2.1.. Postprocedure patient states abdominal pain has improved PHYSICAL EXAMINATION: GENERAL: The patient is alert and oriented x3, ill appearance HEENT: Pupils are round and equally reacting to light. EOMI. Normocephalic, atraumatic. CARDIOVASCULAR: S1 and S2 present. No murmurs, rubs, or gallops. PULMONARY: Chest is clear to auscultation, no wheezing or crackles. ABDOMEN: Soft, nontender, nondistended, normoactive bowel sounds. No palpable organomegaly. MUSCULOSKELETAL: No joint swelling or deformity. EXTREMITIES: No cyanosis, clubbing, or pedal edema. NEUROLOGICAL: Gross neurological examination did not reveal any focal deficits. SKIN: No rashes Assessment and plan * Urinary tract infection with right ureteral stone s/p cystoscopy ureteral stent placement * Right ureteral stone with hydronephrosis * Sepsis secondary to urinary tract infection * Acute kidney injury secondary to obstructive hydronephrosis * Hypertension * Thyroid disorder * In regards to urinary tract infection, continue patient on IV Rocephin, urine cultures ordered * In regards to ureteral stone, urology consulted, s/p cystoscopy with ureteral stent placement right side * In regards to sepsis, blood cultures and urine cultures collected continue IV Rocephin day 2 * In regards to acute kidney injury likely secondary to obstructive uropathy, follow-up on renal profile continue IV hydration, nephrology consulted secondary to persistent elevated creatinine * In regards to thyroid disorder patient is on thyroid replacement * CODE STATUS is full code Objective - Vital Signs Vital signs: Vital Signs Temp 97.9 F 09/29/23 07:07 Pulse 69 09/29/23 07:07 Resp 16 09/29/23 07:07 BP 134/74 09/29/23 07:07 Pulse Ox 96 09/29/23 09:01 FiO2 Intake & Output 09/28/23 09/29/23 09/29/23 18:59 06:59 18:59 Intake Total 950 Output Total 0 Balance 950 Weight 200 kg Intake: IV 950 Output: Estimated Blood Loss 0 Other: # Voids 2 4 1 - Labs CBC & Chem 7: 09/29/23 05:21 09/29/23 05:21 Labs: Abnormal Lab Results - Last 24 Hours (Table) 09/29/23 09/29/23 Range/Units 05:21 05:21 WBC 11.98 H (4.50-10.00) X 10*3/uL RBC 3.71 L (4.10-5.20) X 10*6/uL Hgb 10.7 L (12.0-15.0) g/dL Hct 32.9 L (37.2-46.3) % Immature Gran # 0.11 H (0.00-0.04) X 10*3/uL Neutrophils # 10.63 H (1.80-7.70) X 10*3/uL Lymphocytes # 0.52 L (0.90-5.00) X 10*3/uL Eosinophils # 0 L (0.04-0.35) X 10*3/uL Carbon Dioxide 16.5 L (21.6-31.8) mmol/L Anion Gap 12.50 H (4.00-12.00) mmol/L BUN 47.2 H (9.0-27.0) mg/dL Creatinine 2.6 H (0.6-1.5) mg/dL Est GFR (CKD-EPI) 20 L (>=60) Glucose 121 H (70-110) mg/dL Calcium 7.5 L (8.7-10.3) mg/dL Microbiology - Last 24 Hours (Table) 09/27/23 19:50 Urine Culture - Preliminary Urine,Clean Catch Gram Neg Bacilli 09/27/23 19:35 Blood Culture Gram Stain - Preliminary Blood Blood Culture - Preliminary Molecular ID 09/27/23 19:50 Blood Culture Gram Stain - Preliminary Blood
--- NOTE | 2023-09-29 21:30 | P.PN ---
Subjective Progress Note Date: 09/29/23 Principal diagnosis: Reason for follow-up visit UTI and bacteremia Patient is a 67-year-old female with a past medical history significant for hypertension reflux asthma sleep apnea and thyroid disorder along with depression recently diagnosed with the kidney stone and presenting back to the hospital with worsening abdominal pain and chills has been diagnosed with the complicated UTI in this patient who is status post cystoscopy and right ureteral stent placement also with E. coli bacteremia. On today's evaluation that is 09/29/2023, the patient continues to be afebrile, the patient is on room air and breathing comfortably, the Pt denies having any chest pain or cough, the patient denies having any abdominal pain no vomiting or any diarrhea has been reported by the nursing staff. Patient white count is slightly up to 11.8 creatinine is 2.6 blood and urine w ith gram-negative bacilli ID sensitivities pending Objective - Vital Signs Vital signs: Vital Signs Temp 97.8 F 09/29/23 15:49 Pulse 62 09/29/23 15:49 Resp 19 09/29/23 15:49 BP 135/80 09/29/23 15:49 Pulse Ox 97 09/29/23 15:49 FiO2 Intake & Output 09/28/23 09/29/23 09/29/23 18:59 06:59 18:59 Intake Total 950 Output Total 0 Balance 950 Weight 200 kg Intake: IV 950 Output: Estimated Blood Loss 0 Other: # Voids 2 4 1 - Exam GENERAL DESCRIPTION: An elderly female up in the chair in no distress RESPIRATORY SYSTEM: Unlabored breathing , decreased breath sounds at bases HEART: S1 S2 regular rate and rhythm , ABDOMEN: Soft , no tenderness EXTREMITIES: No edema feet - Labs CBC & Chem 7: 09/29/23 05:21 09/29/23 05:21 Labs: Abnormal Lab Results - Last 24 Hours (Table) 09/29/23 09/29/23 Range/Units 05:21 05:21 WBC 11.98 H (4.50-10.00) X 10*3/uL RBC 3.71 L (4.10-5.20) X 10*6/uL Hgb 10.7 L (12.0-15.0) g/dL Hct 32.9 L (37.2-46.3) % Immature Gran # 0.11 H (0.00-0.04) X 10*3/uL Neutrophils # 10.63 H (1.80-7.70) X 10*3/uL Lymphocytes # 0.52 L (0.90-5.00) X 10*3/uL Eosinophils # 0 L (0.04-0.35) X 10*3/uL Carbon Dioxide 16.5 L (21.6-31.8) mmol/L Anion Gap 12.50 H (4.00-12.00) mmol/L BUN 47.2 H (9.0-27.0) mg/dL Creatinine 2.6 H (0.6-1.5) mg/dL Est GFR (CKD-EPI) 20 L (>=60) Glucose 121 H (70-110) mg/dL Calcium 7.5 L (8.7-10.3) mg/dL Microbiology - Last 24 Hours (Table) 09/27/23 19:50 Blood Culture Gram Stain - Preliminary Blood Blood Culture - Preliminary Gram Neg Bacilli 09/27/23 19:35 Blood Culture Gram Stain - Preliminary Blood Blood Culture - Preliminary Gram Neg Bacilli Molecular ID 09/27/23 19:50 Urine Culture - Preliminary Urine,Clean Catch Gram Neg Bacilli Assessment and Plan (1) Gram-negative bacteremia Current Visit: Yes Status: Acute Code(s): R78.81 - BACTEREMIA SNOMED Code(s): 295259249667 (2) Pyelonephritis Current Visit: Yes Status: Acute Code(s): N12 - TUBULO-INTERSTITIAL NEPHRITIS, NOT SPCF ACUTE OR CHRONIC SNOMED Code(s): 93725775 Plan: 1patient with gram-negative bacteremia source is complicated UTI in this patient who did have right-sided hydronephrosis requiring cystoscopy and ureteral stent placement. 2leukocytosis likely due to complicated UTI. 3renal insufficiency and high risk for nephrotoxicity. 4patient is currently being treated with Rocephin 2 g daily while waiting for the culture to finalize to determine discharge antibiotics. Family at the bedside multiple questions answered Dictation was produced using [employer] software. please excuse any grammatical, word or spelling errors.
[2023-09-29] MEDS: PROGESTERONE 300 MG PO SCH (21:32)
[2023-09-29] MEDS: traMADol 50 MG TAB PO PRN (21:32)
[2023-09-30 08:44] LABS: HCT 31.8 % (37.2-46.3); HGB 10.2 g/dL (12.0-15.0); MCH 28.2 pg (27.0-32.0); MCHC 32.1 g/dL (32.0-37.0); MCV 87.8 FL (80.0-97.0); Mean Platelet Volume 10.4 FL (9.5-12.2); NRBC Per 100 WBC 0 X 10*3/uL (0.00-0.01); Platelet Count 207 X 10*3/uL (140-440); RBC 3.62 X 10*6/uL (4.10-5.20); RDW 13.8 % (11.5-14.5); WBC 13.51 X 10*3/uL (4.50-10.00)
--- NOTE | 2023-09-30 09:17 | P.PN ---
Subjective Progress Note Date: 09/30/23 Principal diagnosis: UTI with sepsis Patient feels much better since undergoing placement of a right ureteral stent on 09/28/2023. She reports mild increased urinary frequency and urgency, which is manageable. She reports fatigue and fluid retention. Objective - Vital Signs Vital signs: Vital Signs Temp 98 F 09/29/23 19:43 Pulse 80 09/29/23 20:00 Resp 18 09/29/23 20:00 BP 147/83 09/29/23 19:43 Pulse Ox 98 09/29/23 19:43 FiO2 Intake & Output 09/29/23 09/29/23 09/30/23 06:59 18:59 06:59 Other: # Voids 4 1 - Constitutional General appearance: Present: average body habitus, cooperative, no acute distress - Psychiatric Psychiatric: Present: A&O x's 3 - Labs CBC & Chem 7: 09/30/23 05:24 09/29/23 05:21 Labs: Abnormal Lab Results - Last 24 Hours (Table) 09/29/23 09/29/23 Range/Units 05:21 05:21 WBC 11.98 H (4.50-10.00) X 10*3/uL RBC 3.71 L (4.10-5.20) X 10*6/uL Hgb 10.7 L (12.0-15.0) g/dL Hct 32.9 L (37.2-46.3) % Immature Gran # 0.11 H (0.00-0.04) X 10*3/uL Neutrophils # 10.63 H (1.80-7.70) X 10*3/uL Lymphocytes # 0.52 L (0.90-5.00) X 10*3/uL Eosinophils # 0 L (0.04-0.35) X 10*3/uL Carbon Dioxide 16.5 L (21.6-31.8) mmol/L Anion Gap 12.50 H (4.00-12.00) mmol/L BUN 47.2 H (9.0-27.0) mg/dL Creatinine 2.6 H (0.6-1.5) mg/dL Est GFR (CKD-EPI) 20 L (>=60) Glucose 121 H (70-110) mg/dL Calcium 7.5 L (8.7-10.3) mg/dL Microbiology - Last 24 Hours (Table) 09/27/23 19:50 Urine Culture - Final Urine,Clean Catch Escherichia coli 09/27/23 19:50 Blood Culture Gram Stain - Preliminary Blood Blood Culture - Preliminary Gram Neg Bacilli 09/27/23 19:35 Blood Culture Gram Stain - Preliminary Blood Blood Culture - Preliminary Gram Neg Bacilli Molecular ID Assessment and Plan Assessment: Urine cultures show greater than 100,000 E. coli species, sensitive to ceftriaxone. Blood cultures show gram-negative bacilli, presumably the same organism. Her WBC count is somewhat increased today, and the serum creatinine level is pending. (1) Right ureteral calculus Current Visit: No Status: Acute Code(s): N20.1 - CALCULUS OF URETER SNOMED Code(s): 47387557 (2) Pyelonephritis Current Visit: Yes Status: Acute Code(s): N12 - TUBULO-INTERSTITIAL NEPHRITIS, NOT SPCF ACUTE OR CHRONIC SNOMED Code(s): 80962832 Plan: From a urologic standpoint, she may be discharged home on appropriate oral antibiotics once her labs improved. I have advised leg elevation. She declines overactive bladder medication. Arrangements will be made for her to undergo cystoscopy, right ureteral stent removal, and ureteroscopic removal of her right ureteral calculus in several weeks, after her infection has resolved.
[2023-09-30 09:20] LABS: BUN/Creat Ratio 22.62 Ratio (12.00-20.00); Blood Urea Nitrogen 47.5 mg/dL (9.0-27.0); Calcium 7.7 mg/dL (8.7-10.3); Chloride 110 mmol/L (96-109); Glucose 100 mg/dL (70-110); Magnesium 2.1 mg/dL (1.5-2.4); Sodium 141 mmol/L (135-145)
--- NOTE | 2023-09-30 09:40 | CDI ---
Documentation Clarification Form Date: 09/30/2023 From: Jeanette León Phone: [phone] Admit Date: 09/27/2023 08:45:00 PM Patient Name: Shayy Medina Visit Number: [id number] Discharge Date: ATTENTION: The Clinical Documentation Specialists (CDI) and [facility] Coding Staff appreciate your assistance in clarifying documentation. Please respond to the clarification below the line at the bottom and electronically sign. The CDI & [facility] Coding staff will review the response and follow-up if needed. Please note: Queries are made part of the Legal Health Record. If you have any questions, please contact the author of this message via ITS. Dr. Collin Kohler: Patient has a documented BMI of 86.1 on 09/26 in [facility]. Additional clarification is requested. History/Risk Factors: HTN, GERD, who presents with complaints of abdominal pain, fever and chills Clinical Indicators: 09/26 Patients weight is 440lbs Patients height is 5ft Calculated BMI is 86.1 09/27 Kelvin Scale: 20 Treatments: Regular diet Please clarify if patients BMI indicates an additional diagnosis: [ y ] Morbid (Extreme) (severe) obesity [ ] No additional diagnosis/not clinically significant [ ] Other, please specify ____ [ ] Unable to determine Reference: NIH Classification for BMI Overweight BMI 2529.9 Obesity (Class 1) BMI 3034.9 Obesity (Class 2) BMI 3539.9 Morbid obesity (Class 3/Extreme/severe) BMI =40 MTDD
[2023-09-30] MEDS: FUROSEMIDE 20 MG TAB PO SCH (09:53)
--- NOTE | 2023-09-30 10:50 | P.PN ---
Subjective Patient is seen in follow-up for acute kidney injury. Renal function improving. Has been voiding. Oral intake good. No vomiting or diarrhea. Vital signs are stable. General: No acute distress. HEENT: Head exam is unremarkable. LUNGS: No audible rhonchi or wheezes. HEART: Rate and Rhythm are regular. ABDOMEN: Nontender. Obese. EXTREMITITES: 1+ edema. Objective - Vital Signs Vital signs: Vital Signs Temp 98.0 F 09/30/23 08:00 Pulse 67 09/30/23 08:00 Resp 16 09/30/23 08:00 BP 112/73 09/30/23 08:00 Pulse Ox 96 09/30/23 09:00 FiO2 Intake & Output 09/29/23 09/30/23 09/30/23 18:59 06:59 18:59 Other: # Voids 1 2 - Labs CBC & Chem 7: 09/30/23 05:24 09/30/23 05:24 Labs: Abnormal Lab Results - Last 24 Hours (Table) 09/30/23 09/30/23 Range/Units 05:24 05:24 WBC 13.51 H (4.50-10.00) X 10*3/uL RBC 3.62 L (4.10-5.20) X 10*6/uL Hgb 10.2 L (12.0-15.0) g/dL Hct 31.8 L (37.2-46.3) % Chloride 110 H (96-109) mmol/L Carbon Dioxide 21.0 L (21.6-31.8) mmol/L BUN 47.5 H (9.0-27.0) mg/dL Creatinine 2.1 H (0.6-1.5) mg/dL Est GFR (CKD-EPI) 25 L (>=60) BUN/Creatinine Ratio 22.62 H (12.00-20.00) Ratio Calcium 7.7 L (8.7-10.3) mg/dL Microbiology - Last 24 Hours (Table) 09/27/23 19:50 Urine Culture - Final Urine,Clean Catch Escherichia coli 09/27/23 19:50 Blood Culture Gram Stain - Preliminary Blood Blood Culture - Preliminary Gram Neg Bacilli 09/27/23 19:35 Blood Culture Gram Stain - Preliminary Blood Blood Culture - Preliminary Gram Neg Bacilli Molecular ID Assessment and Plan Plan: Assessment: 1. Acute kidney injury secondary to septic ATN and component of obstructive uropathy. Creatinine peaked at 2.66 this admission and is improved to 2.1 today. Baseline creatinine near 1. 2. Severe sepsis secondary to E. coli UTI and bacteremia on antibiotics. ID following. 3. Right hydronephrosis secondary to obstructive calculus status post cystoscopy with ureteral stent placement September 28, 2023. 4. Benign hypertension. Controlled. 5. Metabolic acidosis secondary to acute kidney injury and IV fluids. On oral bicarb. Better. 6. Hypovolemic hyponatremia improved with IV fluids. 7. Mild volume overload secondary to IV fluids. Plan: Encouraged oral intake. Add oral Lasix 20 mg once daily. Avoid nephrotoxins. Continue to monitor renal function and urine output. Repeat BMP and magnesium level 2 to 3 days postdischarge. Follow-up outpatient in 1 week.
[2023-09-30 15:13] VITALS: BP 137/74; PULSE 70; RESP 18; TEMP 98.3
== END 2023-09-30 15:28 | disposition home or self-care (01) | DRG 853 ==
LOC: EC 17:03 → 5NMEDONC 20:45 → 4SSUR 09-28 02:21
PROVIDERS: ADMIT Hospitalist; ATTEND Hospitalist
PROC: 0T768DZ Dilation of Right Ureter with Intraluminal Device, Via Natural or Artificial Opening Endoscopic (ICD-10-PCS; principal; 2023-09-28 11:00)
DX: A41.51 Sepsis due to Escherichia coli [E. coli] (principal); N17.0 Acute kidney failure with tubular necrosis; E87.20 Acidosis, unspecified; E87.1 Hypo-osmolality and hyponatremia; N13.6 Pyonephrosis; Z68.45 Body mass index [BMI] 70 or greater, adult; E66.01 Morbid (severe) obesity due to excess calories; E89.0 Postprocedural hypothyroidism; F32.A Depression, unspecified; I10 Essential (primary) hypertension; J45.909 Unspecified asthma, uncomplicated; R65.20 Severe sepsis without septic shock; Z28.310 Unvaccinated for COVID-19; E86.1 Hypovolemia; E87.70 Fluid overload, unspecified; K21.9 Gastro-esophageal reflux disease without esophagitis; G47.30 Sleep apnea, unspecified; Z79.890 Hormone replacement therapy; Z79.899 Other long term (current) drug therapy; Z87.442 Personal history of urinary calculi; Z98.84 Bariatric surgery status; Z88.5 Allergy status to narcotic agent
CPT/HCPCS: 36415; 71046; 74018; 80048; 80053; 81001; 83605; 83735; 85025; 85027; 85610; 85730; 87040; 87077; 87086; 87186; 93005; 94640; 96361; 96365; 96375; 99291

== ENCOUNTER → 2023-10-07 | Outpatient (CLI) | payer BC ==
[2023-10-07 18:37] LABS: Basophils # (A) 0.06 X 10*3/uL (0.00-0.10); Basophils % (A) 0.5 %; Eosinophils # (A) 0.27 X 10*3/uL (0.04-0.35); Eosinophils % (A) 2.2 %; HCT 39.1 % (37.2-46.3); Lymphocytes % (A) 20.2 %; MCH 28.3 pg (27.0-32.0); MCHC 30.7 g/dL (32.0-37.0); MCV 92.2 FL (80.0-97.0); Mean Platelet Volume 10.2 FL (9.5-12.2); Monocytes # (A) 1.22 X 10*3/uL (0.20-1.00); Monocytes % (A) 9.9 %; NRBC Per 100 WBC 0 X 10*3/uL (0.00-0.01); Neutrophils # (A) 8.18 X 10*3/uL (1.80-7.70); Neutrophils % (A) 66.1 %; Platelet Count 377 X 10*3/uL (140-440); RBC 4.24 X 10*6/uL (4.10-5.20); RDW 13.7 % (11.5-14.5); WBC 12.36 X 10*3/uL (4.50-10.00)
[2023-10-07 19:16] LABS: BUN/Creat Ratio 17.07 Ratio (12.00-20.00); Blood Urea Nitrogen 23.9 mg/dL (9.0-27.0); Calcium 9.6 mg/dL (8.7-10.3); Chloride 101 mmol/L (96-109); Glucose 88 mg/dL (70-110); Magnesium 1.6 mg/dL (1.5-2.4); Potassium 4.9 mmol/L (3.5-5.5); Sodium 141 mmol/L (135-145)
[2023-10-07 21:35] LABS: Appearance,Urine Clear (Clear); Bilirubin,Urine Negative (Negative); Blood,Urine Trace (Negative); Color,Urine Yellow (Yellow); Ketones,Urine Negative (Negative); Nitrite,Urine Negative (Negative); Urobilinogen,Urine 0.2 E.U./DL
[2023-10-07 21:41] LABS: Bacteria,Urine Trace (None Seen)
== END | disposition home or self-care (01) ==
LOC: LABPAT 12:14
PROVIDERS: ATTEND Urology
DX: Z01.812 Encounter for preprocedural laboratory examination (principal); N20.1 Calculus of ureter
CPT/HCPCS: 36415; 80048; 81001; 83735; 85025; 87086

== ENCOUNTER → 2023-10-14 | Day surgery (SDC) | payer BC ==
[~2023-10-14] MED LIST: HYDROmorphone 0.5 MG/0.5 ML SYRINGE IVP PRN; KETOROLAC 15 MG/ML 1 ML VIAL ONE; LIDOCAINE 1% (10MG/ML) FOR IV START INTRADERMA PRN; LIDOCAINE 1% INJ 10MG/ML (20 ML MDV) ONE; MIDAZOLAM 2 MG/2 ML VIAL IV PRN; MIDAZOLAM 2 MG/2 ML VIAL ONE; PHENYLEPHRINE-0.9% NACL SYG 1,000 MCG/10 ML SYRINGE ONE; PROPOFOL 10 MG/ML 20 ML VIAL IV ONE; ceFAZolin 1 GM/50 ML BAG (PMX) ONE; fentaNYL (PF) 50 MCG/ML 2 ML AMP ONE
[2023-10-14] MEDS: LACTATED RINGERS 1,000 ML IV SCH (10:06)
[2023-10-14] MEDS: DEXAMETHASONE SOD PHOSPHATE 4 MG/ML 1 ML VIAL IV ONE (10:07)
[2023-10-14] MEDS: ONDANSETRON 4 MG/2 ML VIAL IVP ONE (10:07)
--- NOTE | 2023-10-14 10:12 | XR ---
EXAMINATION TYPE: XR KUB DATE OF EXAM: 10/14/2023 9:21 AM CLINICAL INDICATION:Female, 67 years old with history of cysto/litho stone basketing/stent removal; P HH COMPARISON: 09/28/2023. TECHNIQUE: One radiographic view of the abdomen was obtained. FINDINGS: Right ureteral stent with inferior and superior pigtails in appropriate position. Left pelv is Mak-Georges drainage tube. The bowel gas pattern is nonspecific without dilated loops of small o r large bowel. There is no evidence for organomegaly or pneumoperitoneum. The osseous structures are intact. No abnormal calcifications are present. Fecal material and gas are demonstrated throughout the colon and rectum. IMPRESSION: 1. Right ureteral stent with inferior and superior pigtails in appropriate position. 2. Left pelvis Mak-Georges drainage tube. 3. Nonspecific bowel gas pattern without radiographic evidence for acute process.
[2023-10-14 10:21] LABS: Glucose,Whole Blood 83 mg/dL (70-110)
--- NOTE | 2023-10-14 10:59 | P.HPIHPCON ---
History of Present Illness H&P Date: 10/14/23 Chief Complaint: Right ureteral stone This is a 67-year-old female with history of a 4 mm right-sided UPJ stone, status post right-sided stent insertion for septic stone on September 27. Presents today for right-sided ureteroscopy with holmium laser and stent removal. Aware the risk which includes but not limited to bleeding, infection, injury to the ureter. Risk of anesthesia was also discussed. She understood all the risk and agreed to proceed Consent for Procedure: I have explained the operation/procedure to the patient, including the risks, benefits, side effects, alternative therapies (including not receiving the proposed treatment or service), the likelihood of the patient achieving his/her goals, and potential recuperation problems for the procedure/sedation/analgesia, as well as any blood products, if indicated. I also explained to the patient the risks, benefits and side effects of the alternatives, as well as the risks related to not receiving the proposed procedure, care, treatment, or services. Past Medical History Past Medical History: GERD/Reflux, Hypertension, Renal Disease, Sleep Apnea/CPAP/BIPAP, Thyroid Disorder Additional Past Medical History / Comment(s): 09/27/23 admitted to [facility] with hydronephrosis/kidney stone/UTI with sepsis. 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 Past Anesthesia/Blood Transfusion Reactions: Motion Sickness, Postoperative Nausea & Vomiting (PONV) Smoking Status: Never smoker - Past Family History Father Family Medical History: Coronary Artery Disease (CAD), Deep Vein Thrombosis (DVT), Renal Disease Medications and Allergies Home Medications Medication Instructions Recorded Confirmed Type Omeprazole 20 mg PO QAM 08/02/21 10/14/23 History Acetaminophen [Tylenol Arthritis] 650 - 1,300 mg PO TID PRN 09/25/23 10/14/23 History Dhea 20mg 1 cap PO QAM 09/25/23 10/14/23 History Estradiol 8mg/Gm Cream 0.25 gm TOPICAL BID 09/25/23 10/14/23 History Testosterone 40mg/Gm Cream 0.25 gm TOPICAL Q72H 09/25/23 10/14/23 History Thyroid,Pork [[employer] Super[employer] Thyroid] 90 mg PO QAM 09/25/23 10/14/23 History Albuterol Sulfate [Proair 2 puff INHALATION Q6H PRN 09/28/23 10/14/23 History Respiclick] Progesterone, Micronized 500 mg PO HS 09/28/23 10/14/23 History [Progesterone] Furosemide [Lasix] 20 mg PO QAM 10/08/23 10/14/23 History Olmesartan/Hydrochlorothiazide 0.5 tab PO QAM 10/08/23 10/14/23 History [Olmesartan-Hctz 40-12.5 mg Tab] Allergies Allergy/AdvReac Type Severity Reaction Status Date / Time codeine AdvReac Nausea & Verified 10/14/23 10:04 Vomiting Surgical - Exam Vital Signs Temp Pulse Resp BP Pulse Ox 97.8 F 75 18 179/72 99 10/14/23 10:03 10/14/23 10:03 10/14/23 10:03 10/14/23 10:03 10/14/23 10:03 - General no distress, no pain - Eyes normal ocular movement, no pale - ENT normal nares, normal mucosa - Respiratory normal expansion, normal respiratory effort - Abdomen Abdomen: soft, non tender Assessment and Plan Assessment: OR for right-sided ureteroscopy, holmium laser lithotripsy, stone basketing and stent removal
[2023-10-14] MEDS: SODIUM CHLORIDE 0.9% 100 ML with ceFAZolin 2,000 MG IV ONE (11:05)
--- NOTE | 2023-10-14 12:02 | P.OP ---
Date of Procedure: 10/14/23 Preoperative Diagnosis: Right ureteral stone Postoperative Diagnosis: Same Procedure(s) Performed: Cystoscopy, right ureteroscopy, holmium laser lithotripsy, and stent removal Implants: none Estimated Blood Loss (ml): 5 Pathology: none sent Condition: stable Disposition: PACU Indications for Procedure: This is a 67-year-old female with history of a 4 mm right-sided UPJ stone, status post right-sided stent insertion for septic stone on September 27. Presents today for right-sided ureteroscopy with holmium laser and stent removal. Aware the risk which includes but not limited to bleeding, infection, injury to the ureter. Risk of anesthesia was also discussed. She understood all the risk and agreed to proceed Description of Procedure: Patient brought to the operating room, general anesthesia was induced. She was prepped and draped in sterile fashion placed in a dorsolithotomy position. Cystoscopy through the 21 [place] sheath was inserted per urethra, cystoscopy was performed showed no abnormality within the bladder. The stent was then grasped and removed intact. Next a semirigid ureteroscope was inserted per urethra and advanced up the right ureteral orifice, the scope was advanced all the way up to the UPJ which showed no stones, pullback ureteroscopy was performed showed no injury to the ureter or any ureteral stones, as ureteroscope was withdrawn a sensor wire was advanced through. Next a flexible ureteroscope was backloaded over the wire and advanced under fluoroscopy into the kidney. A complete renoscopy was performed which showed a small stone in the upper pole that was dusted, fragments were too small to be able to be basketed. Repeat renoscopy showed no sizable stone fragments or injury to the kidney. Pullback ureteroscopy was performed showed no injury to the ureter or any ureteral stones, the bladder was emptied at the end of the case. Patient tolerated procedure was taken to recovery in stable condition
--- NOTE | 2023-10-14 12:16 | FL ---
EXAMINATION TYPE: FL guidance operating room Intraoperative/procedural fluoroscopic services were pro vided. Total fluoroscopy time is 2.9 seconds with a total of 2 submitted images to PACS. Please see t he operative/procedural note for further details. DAP: [id number] mGym2
[2023-10-14 12:32] VITALS: TEMP 97.6
[2023-10-14 13:29] VITALS: BP 132/80; PULSE 72; RESP 14
== END ==
LOC: OR 09:04
PROVIDERS: ATTEND Urology
DX: N20.1 Calculus of ureter (principal); I10 Essential (primary) hypertension; K21.9 Gastro-esophageal reflux disease without esophagitis; E07.9 Disorder of thyroid, unspecified; G47.33 Obstructive sleep apnea (adult) (pediatric); N28.9 Disorder of kidney and ureter, unspecified; F32.A Depression, unspecified; M19.90 Unspecified osteoarthritis, unspecified site; Z87.440 Personal history of urinary (tract) infections; Z98.890 Other specified postprocedural states; Z82.49 Family history of ischemic heart disease and other diseases of the circulatory system; Z79.890 Hormone replacement therapy; Z79.51 Long term (current) use of inhaled steroids; Z88.5 Allergy status to narcotic agent; Z79.899 Other long term (current) drug therapy; Z90.721 Acquired absence of ovaries, unilateral
CPT/HCPCS: 74018; 52353; C1758 ×4; C1894; C1769; J2250; J1100; J2405; J0690 ×2; J2001; J3010; J1885; J2704; J2371

== ENCOUNTER → 2024-07-23 | Outpatient (CLI) | payer BC ==
--- NOTE | 2024-07-23 14:42 | MM ---
Reason for Exam: Screening (asymptomatic). Last screening mammogram was performed 12 month(s) ago. Patient History: Menarche at age 12. First Full-Term at age 19. Left ovary removed at age 45. Postmenopausal. Currently using Progesterone, for 15 years. Paternal aunt had breast cancer, age 43. Sister had breast cancer, age 74. Risk Values: Chyna 5 year model risk: 3.2%. NCI Lifetime model risk: 10.1%. Prior Study Comparison: 01/07/2019 Bilateral Screening Mammogram, [facility]. 08/24/2021 Bilateral Screening Mammogram, [facility]. 07/15/2023 Bilateral MG 3D screening mammo w/cad, [facility]. Tissue Density: The breasts are almost entirely fatty. Findings: Analyzed By CAD. Right breast: There is no suspicious group of microcalcifications or new suspicious mass. Left breast: There is no suspicious group of microcalcifications or new suspicious mass. Benign-appearing calcifications left breast. Overall Assessment: Benign, BI-RAD 2 Management: Screening Mammogram of both breasts in [address] [facility] will attempt to contact patient to return for supplemental views and ultrasound if indicated. Patient should continue monthly self-breast exams. A clinical breast exam by your physician is recommended on an annual basis. This exam should not preclude additional follow-up of suspicious palpable abnormalities. Note on Chyna scores and lifetime risk: 1. A Chyna score greater than 3% is considered moderate risk. If this is the case, consider specialist referral to assess eligibility for a risk reducing agent. 2. If overall lifetime risk for the development of breast cancer is 20% or higher, the patient may qualify for future screening with alternating mammogram and breast MRI. [facility], , 07/23/2024 2:38 PM. Electronically signed and approved by: Shawn Mancera DO
== END | disposition home or self-care (01) ==
LOC: RADMAMWWP 13:37
PROVIDERS: ATTEND Family Medicine
DX: Z12.31 Encounter for screening mammogram for malignant neoplasm of breast (principal); R92.313 Mammographic fatty tissue density, bilateral breasts; R92.1 Mammographic calcification found on diagnostic imaging of breast; Z78.0 Asymptomatic menopausal state; Z80.3 Family history of malignant neoplasm of breast
CPT/HCPCS: 77063; 77067